=== PATIENT | female | born 1930 | race Caucasian/White ===

== ENCOUNTER 2017-06-15 09:47 | Emergency (ER) | payer OTHER ==
[2017-06-15] MEDS ORDERED: NA CHLORIDE 0.9% 1,000 ML ONE (12:09)
[2017-06-15 12:11] LABS: Urine Blood NEGATIVE (NEG); Urine Glucose NEGATIVE (NEG); Urine Protein NEGATIVE (NEG)
--- NOTE | 2017-06-15 12:16 | RAD REPORT ---
EXAM DESCRIPTION: RAD - Chest Single View - 06/15/2017 12:08 pm CLINICAL HISTORY: Hypertension COMPARISON: 03/04/2016 FINDINGS: Portable technique limits examination quality. The lungs are emphysematous but grossly clear. The heart is normal in size. No displaced fractures. IMPRESSION: Prominent emphysema.
[2017-06-15 12:25] LABS: Urine Bacteria <20 /HPF (<20); Urine Culture Reflex Order NOT NEEDED; Urine RBC <5 /HPF (NONE SEEN)
[2017-06-15 12:35] LABS: Absolute Lymphocytes (CBC) 0.8 K/uL (0.7-4.9); Absolute Monocytes 0.4 K/uL (0.1-1.3); Absolute Neutrophil 6.4 K/uL (1.8-8.0); Basophils % 0.8 % (0-1.3); Eosinophils % 1.7 % (0-4.4); Hematocrit 36.7 % (36.0-45.0); Lymphocytes % 10.1 % (15.3-44.8); MCH 29.7 pg (27.0-35.0); MCV 89.9 fL (80-100); MPV 8.3 fL (7.6-11.3); Monocytes % 5.5 % (3.3-12.3); RBC Red Blood Cell Count 4.08 M/uL (3.86-4.86)
[2017-06-15 12:37] LABS: Protime INR 0.97
[2017-06-15 12:40] LABS: Bicarbonate 38 mEq/L (21-31); Glucose Level 95 mg/dL (65-120); Sodium Level 132 mEq/L (135-145)
[2017-06-15 12:46] LABS: ALT/SGPT 23 IU/L (10-60); AST/SGOT 30 IU/L (10-42); Albumin 3.5 g/dL (3.2-5.5); Alkaline Phosphatase 72 IU/L (42-121); BUN Blood Urea Nitrogen 8 mg/dL (6-20); Bilirubin Direct 0.1 mg/dL (0-0.2); Bilirubin Total 0.4 mg/dL (0.3-1.2); Creatine Phosphokinase 64 IU/L (22-269); Magnesium 1.8 mg/dL (1.8-2.5); Protein, Total 7.6 g/dL (6.0-8.3)
[2017-06-15 12:48] LABS: CKMB Creatine Kinase MB 6.6 ng/ml (0.3-4.0)
[2017-06-15] MEDS ORDERED: LORAZEPAM 0.5 MG TABLET ONE (13:03)
[2017-06-15 13:18] LABS: Thyroid Stimulating Hormone 1.66 uIU/mL (0.34-5.60)
--- NOTE | 2017-06-15 14:21 | ER ---
Nurse's Notes [facility] Name: Tamiko Betts Age: 87 yrs Sex: Female : 1930 Arrival Date: 06/15/2017 Time: 09:50 Bed 19 Private MD: Crystal Love Diagnosis: Malaise and fatigue;Essential (primary) hypertension;Gastroesophageal bleeding Presentation: 06/15 10:00 Presenting complaint: Patient states: i have blurry vision this AM and headache, denies hj nausea and vomiting; reported blood in stool last night; and today BP was 197/89 this AM;. Transition of care: patient was not received from another setting of care. Onset of symptoms was June 15, 2017. Care prior to arrival: None. 10:00 Method Of Arrival: Ambulatory hj 10:00 Acuity: CARMINA 3 hj 11:00 Initial Sepsis Screen: Does the patient meet any 2 criteria? No. Patient's initial em sepsis screen is negative. Does the patient have a suspected source of infection? No. Patient's initial sepsis screen is negative. Triage Assessment: 10:04 General: Appears in no apparent distress. uncomfortable, Behavior is calm, cooperative, hj appropriate for age. Pain: Complains of pain in head Pain currently is 4 out of 10 on a pain scale. Historical: - Allergies: 10:03 No Known Allergies; hj - Home Meds: 10:03 amlodipine 5 mg tab 1 tab once daily [Active]; ibandronate 150 mg Oral tab 1 tab once hj moly [Active]; levothyroxine 50 mcg tab 1 tab once daily [Active]; metoprolol tartrate 50 mg oral tab 1 tab 2 times per day [Active]; mirtazapine 7.5 mg Oral tab nightly [Active]; pravastatin 20 mg Oral tab 1 tab once daily [Active]; Spiriva with HandiHaler 18 mcg inhalation CpDv 1 cap once daily [Active]; - PMHx: 10:03 COPD; High Cholesterol; Hypertension; hj - PSHx: 10:03 Hernia repair; hj - Immunization history:: Adult Immunizations up to date. - Social history:: Smoking status: Patient/guardian denies using tobacco. Screenin:41 Abuse screen: Denies threats or abuse. Nutritional screening: No deficits noted. em Tuberculosis screening: No symptoms or risk factors identified. Fall Risk None identified. Assessment: 11:00 General: Appears in no apparent distress. comfortable, malnourished, Behavior is calm, em cooperative, Denies fever. Pain: Denies pain. Neuro: Level of Consciousness is awake, alert, obeys commands, Oriented to person, place, time, situation, Parking Attendant are weak bilaterally Gait is unsteady, Speech is normal, Facial symmetry appears normal, Pupils are PERRLA, Intact. Cardiovascular: Denies chest pain, Heart tones S1 S2 present Capillary refill < 3 seconds Patient's skin is warm and dry. Respiratory: Airway is patent Respiratory effort is even, unlabored, Respiratory pattern is regular, symmetrical, Breath sounds are clear bilaterally. GI: Abdomen is flat. : Urine is clear. EENT: No signs and/or symptoms were reported regarding the EENT system. Derm: Skin is intact, Skin is pink, warm \T\ dry. Musculoskeletal: Range of motion: intact in all extremities. 11:25 Reassessment: Patient appears in no apparent distress at this time. I agree with the iw above assessment by Sid Gallagher LVN. 12:20 Reassessment: Patient appears in no apparent distress at this time. Patient and/or em family updated on plan of care and expected duration. Pain level reassessed. Patient is alert, oriented x 3, equal unlabored respirations, skin warm/dry/pink. 13:20 Reassessment: Patient appears in no apparent distress at this time. Patient and/or em family updated on plan of care and expected duration. Pain level reassessed. Patient is alert, oriented x 3, equal unlabored respirations, skin warm/dry/pink. 14:26 Reassessment: Patient appears in no apparent distress at this time. Patient and/or em family updated on plan of care and expected duration. Pain level reassessed. Patient is alert, oriented x 3, equal unlabored respirations, skin warm/dry/pink. Patient states feeling better. Patient states symptoms have improved. 15:18 Reassessment: Patient appears in no apparent distress at this time. Patient and/or em family updated on plan of care and expected duration. Pain level reassessed. Patient is alert, oriented x 3, equal unlabored respirations, skin warm/dry/pink. Patient states feeling better. Patient states symptoms have improved. Vital Signs: 10:05 BP 180 / 77; Pulse 61; Resp 20; Temp 98.1(TE); Pulse Ox 91% on 2 lpm NC; Weight 28.12 hj kg; Height 5 ft. 11 in. (180.34 cm); Pain 4/10; 12:46 BP 149 / 54; Pulse 59; Resp 19; Pulse Ox 98% on R/A; dh3 13:39 BP 163 / 51; Pulse 60; Resp 14; Pulse Ox 99% on 2 lpm NC; mh5 14:27 BP 153 / 67; Pulse 58; Resp 18; Pulse Ox 96% on 2 lpm NC; Pain 0/10; em 10:05 Body Mass Index 8.65 (28.12 kg, 180.34 cm) hj ED Course: 09:50 Patient arrived in ED. mr 09:50 Crystal Love MD is Private Physician. mr 10:02 Triage completed. hj 10:04 Arm band placed on left wrist. hj 10:38 EKG done, by medical technologist clinical. reviewed by Yadiel Figueroa MD. tc 10:44 Sid Gallagher LVN is Primary Nurse. em 10:51 Kesha Orozco FNP-C is PHCP. snw 10:51 Yadiel Figueroa MD is Attending Physician. snw 11:20 Urine collected: clean catch specimen, clear. em 11:41 Patient has correct armband on for positive identification. Placed in gown. Bed in low em position. Call light in reach. Side rails up X2. Adult w/ patient. 11:50 No provider procedures requiring assistance completed. Inserted saline lock: 20 gauge em in right antecubital area, using aseptic technique. Blood collected. 12:05 X-ray completed. Portable x-ray completed in exam room. Patient tolerated procedure sw well. 12:05 Initial lab(s) drawn, by me, sent to lab. First set of blood cultures drawn by me, em Second set of blood cultures drawn by me. 12:06 XRAY Chest (1 view) In Process Unspecified. EDMS 14:19 Crystal Love MD is Referral Physician. snw 14:19 Augusto Sow MD is Referral Physician. snw 14:39 EKG done, by medical technologist clinical. reviewed by Yadiel Figueroa MD Repeat EKG. at1 15:34 IV discontinued, intact, bleeding controlled, No redness/swelling at site. Pressure em dressing applied. Administered Medications: 12:14 Drug: NS 0.9% 1000 ml Route: IV; Rate: 75 ml/hr; Site: right antecubital; em 15:33 Follow up: IV Status: Order to discontinue infusion; IV Intake: 150ml em 13:09 Drug: Ativan 0.5 mg Route: PO; em 14:22 Follow up: Response: No adverse reaction em Intake: 15:33 IV: 150ml; Total: 150ml. em Outcome: 14:20 Discharge ordered by MD. urbina 15:33 Discharged to home ambulatory. em 15:33 Condition: good 15:33 Discharge instructions given to patient, family, Instructed on discharge instructions, follow up and referral plans. Demonstrated understanding of instructions, follow-up care. 15:51 Patient left the ED. em Signatures: Dispatcher [employer] EDMS Kesha Orozco, MANAGER CRISIS-C MANAGER CRISIS-Csnw Rose Olsen mr Elliott, Sid, PASTE MIXER LIQUID PASTE MIXER LIQUID em Shannan Dimas, RN Milagros Dawson, casing grader EKG Tat1 Jes Valdovinos, casing grader EKG Ttc Faith Leonard Henry, RN RN hj Martinez, Maria [facility] Didi Hale formerly [facility]
--- NOTE | 2017-06-15 14:21 | EDPHYS ---
Physician Documentation [facility] Name: Tamiko Betts Age: 87 yrs Sex: Female : 1930 Arrival Date: 06/15/2017 Time: 09:50 Bed 19 Private MD: Crystal Love ED Physician Yadiel Figueroa HPI: 06/15 11:49 This 87 yrs old Female presents to ER via Ambulatory with complaints of High snw Blood Pressure, Vision Problem. 11:49 Onset: The symptoms/episode began/occurred acutely, 1 week(s) ago, and became snw persistent. Associated signs and symptoms: Pertinent positives: dizziness, headache. Severity of symptoms: At its worst the blood pressure was moderate, this morning, 188 mm Hg. The patient has experienced similar episodes in the past, several times. The patient has been recently seen by a physician: the patient's primary care provider, Dr. Love 5 day(s) ago, with different complaint(s), and apparently was diagnosed with UTI, was given a prescription for antibiotics. Historical: - Allergies: 10:03 No Known Allergies; hj - Home Meds: 10:03 amlodipine 5 mg tab 1 tab once daily [Active]; ibandronate 150 mg Oral tab 1 tab once hj moly [Active]; levothyroxine 50 mcg tab 1 tab once daily [Active]; metoprolol tartrate 50 mg oral tab 1 tab 2 times per day [Active]; mirtazapine 7.5 mg Oral tab nightly [Active]; pravastatin 20 mg Oral tab 1 tab once daily [Active]; Spiriva with HandiHaler 18 mcg inhalation CpDv 1 cap once daily [Active]; - PMHx: 10:03 COPD; High Cholesterol; Hypertension; hj - PSHx: 10:03 Hernia repair; hj - Immunization history:: Adult Immunizations up to date. - Social history:: Smoking status: Patient/guardian denies using tobacco. ROS: 11:48 Eyes: Negative for injury, pain, redness, and discharge, ENT: Negative for injury, snw pain, and discharge, Neck: Negative for injury, pain, and swelling, Cardiovascular: Negative for chest pain, palpitations, and edema, Respiratory: Negative for shortness of breath, cough, wheezing, and pleuritic chest pain. 11:48 Back: Negative for injury and pain, : Negative for injury, bleeding, discharge, and swelling, MS/Extremity: Negative for injury and deformity, Skin: Negative for injury, rash, and discoloration. 11:48 Constitutional: Positive for body aches, chills, fatigue, malaise, poor PO intake. 11:48 Abdomen/GI: Positive for nausea, rectal bleeding. 11:48 Neuro: Positive for headache. Exam: 11:46 Head/Face: Normocephalic, atraumatic. Eyes: Pupils equal round and reactive to light, snw extra-ocular motions intact. Lids and lashes normal. Conjunctiva and sclera are non-icteric and not injected. Cornea within normal limits. Periorbital areas with no swelling, redness, or edema. ENT: Nares patent. No nasal discharge, no septal abnormalities noted. Tympanic membranes are normal and external auditory canals are clear. Oropharynx with no redness, swelling, or masses, exudates, or evidence of obstruction, uvula midline. Mucous membranes moist. Neck: Trachea midline, no thyromegaly or masses palpated, and no cervical lymphadenopathy. Supple, full range of motion without nuchal rigidity, or vertebral point tenderness. No Meningismus. Chest/axilla: Normal chest wall appearance and motion. Nontender with no deformity. No lesions are appreciated. Cardiovascular: Regular rate and rhythm with a normal S1 and S2. No gallops, murmurs, or rubs. Normal PMI, no JVD. No pulse deficits. 11:46 Back: No spinal tenderness. No costovertebral tenderness. Full range of motion. 11:46 Neuro: Awake and alert, GCS 15, oriented to person, place, time, and situation. Cranial nerves II-XII grossly intact. Motor strength 5/5 in all extremities. Sensory grossly intact. Cerebellar exam normal. Normal gait. Psych: Awake, alert, with orientation to person, place and time. Behavior, mood, and affect are within normal limits. 11:46 Constitutional: The patient appears frail, uncomfortable. 11:46 Respiratory: the patient does not display signs of respiratory distress, Respirations: pursed lip breathing, shallow respirations, Breath sounds: are clear throughout, home O2 at 2 L. 11:46 Abdomen/GI: Inspection: flat, Bowel sounds: hyperactive, in all quadrants, Palpation: abdomen is soft and non-tender, Rectal exam: rectal tone normal, Stool: guaiac positive. 11:46 Skin: Appearance: Color: normal in color, Temperature: cool, Moisture: dry, pressure sore stage 1 at thoracic spine, pressure sore stage 1 to sacral area. Vital Signs: 10:05 BP 180 / 77; Pulse 61; Resp 20; Temp 98.1(TE); Pulse Ox 91% on 2 lpm NC; Weight 28.12 hj kg; Height 5 ft. 11 in. (180.34 cm); Pain 4/10; 12:46 BP 149 / 54; Pulse 59; Resp 19; Pulse Ox 98% on R/A; dh3 13:39 BP 163 / 51; Pulse 60; Resp 14; Pulse Ox 99% on 2 lpm NC; mh5 14:27 BP 153 / 67; Pulse 58; Resp 18; Pulse Ox 96% on 2 lpm NC; Pain 0/10; em 10:05 Body Mass Index 8.65 (28.12 kg, 180.34 cm) hj MDM: 11:02 Patient medically screened. snw 15:23 Data reviewed: vital signs, nurses notes. Data interpreted: Pulse oximetry: on 2L(s) snw per nasal canula, is 96 %. Interpretation: acceptable. Counseling: I had a detailed discussion with the patient and/or guardian regarding: the historical points, exam findings, and any diagnostic results supporting the discharge/admit diagnosis, the presence of at least one elevated blood pressure reading (>120/80) during this emergency department visit, lab results, radiology results, the need for outpatient follow up, to return to the emergency department if symptoms worsen or persist or if there are any questions or concerns that arise at home. Special discussion: I have referred the patient to see his PCP for further evaluation of high blood pressure. Based on the history and exam findings, there is no indication for further emergent testing or inpatient evaluation. I discussed with the patient/guardian the need to see the treating inspector for further evaluation of the symptoms. I discussed with the patient/guardian the need to see the primary care provider for further evaluation of the symptoms. 06/15 11:24 Order name: Urine Microscopic Only; Complete Time: 12:27 em 06/15 11:35 Order name: Urine Dipstick--Ancillary (enter results); Complete Time: 12:14 mw2 06/15 11:45 Order name: Basic Metabolic Panel; Complete Time: 13:22 snw 06/15 11:45 Order name: BNP; Complete Time: 12:56 snw 06/15 11:45 Order name: CBC with Diff; Complete Time: 12:39 snw 06/15 11:45 Order name: Ckmb; Complete Time: 13:22 snw 06/15 11:45 Order name: CPK; Complete Time: 13:22 snw 06/15 11:45 Order name: LFT's; Complete Time: 13:22 snw 06/15 11:45 Order name: Magnesium; Complete Time: 13:22 snw 06/15 11:45 Order name: PT-INR; Complete Time: 13:09 snw 06/15 11:45 Order name: Ptt, Activated; Complete Time: 13:09 w 06/15 11:45 Order name: Troponin (emerg Dept Use Only); Complete Time: 12:56 snw 06/15 11:45 Order name: TS; Complete Time: 13:15 snw 06/15 11:45 Order name: TSH; Complete Time: 13:22 snw 06/15 10:12 Order name: EKG; Complete Time: 10:28 hj 06/15 11:45 Order name: XRAY Chest (1 view); Complete Time: 12:19 w 06/15 11:45 Order name: Cardiac monitoring; Complete Time: 12:w 06/15 11:45 Order name: EKG - Nurse/Tech; Complete Time: 12:06 w 06/15 11:45 Order name: IV Saline Lock; Complete Time: 12:06 snw 06/15 11:45 Order name: Labs collected and sent; Complete Time: 12:w 06/15 11:45 Order name: O2 Per Protocol; Complete Time: 12:06 snw 06/15 11:45 Order name: O2 Sat Monitoring; Complete Time: 12:06 snw 06/15 11:45 Order name: Blood Culture Adult (2) w 06/15 13:12 Order name: ABO/RH no charge; Complete Time: 13:15 EDMS 06/15 14:29 Order name: EKG; Complete Time: 14:30 snw 06/15 14:29 Order name: EKG - Nurse/Tech; Complete Time: 15:16 snw Administered Medications: 12:14 Drug: NS 0.9% 1000 ml Route: IV; Rate: 75 ml/hr; Site: right antecubital; em 15:33 Follow up: IV Status: Order to discontinue infusion; IV Intake: 150ml em 13:09 Drug: Ativan 0.5 mg Route: PO; em 14:22 Follow up: Response: No adverse reaction em Disposition: 06/15/17 14:20 Discharged to Home. Impression: Malaise and fatigue, Essential (primary) hypertension, Gastroesophageal bleeding. - Condition is Stable. - Discharge Instructions: Hypertension, Fatigue. - Medication Reconciliation Form, Thank You Letter, Antibiotic Education, Prescription Opioid Use form. - Follow up: Crystal Love MD; When: Tomorrow; Reason: Recheck today's complaints, Continuance of care, Re-evaluation by your physician. Follow up: Augusto Sow MD; When: 2 - 3 days; Reason: Recheck today's complaints, Continuance of care, Re-evaluation by your physician. Addendum: 06/18/2017 06:14 Co-signature as Attending Physician, Yadiel Figueroa MD Available for consultation at p s1 all times. . Signatures: Dispatcher [employer] EDMS Kesha Orozco, CHRISTEN-C HVAC INSTALLATION TECHNICIAN-Csnw Sid Gallagher, ADRIANNA MAINTENANCE FOREMAN em Gianluca Orellana, RN RN Yadiel Barber MD MD ps1 Corrections: (The following items were deleted from the chart) 06/15 11:49 11:46 Skin: Appearance: Color: normal in color, Temperature: cool, Moisture: dry, snw snw
--- NOTE | 2017-06-15 14:52 | EKG ---
Test Date: 2017-06-15 Test Time: 14:31:43 Dwarf Tree Grower: LONNIE MEASUREMENT RESULTS: Intervals: Rate: 62 DE: 132 QRSD: 68 QT: 408 QTc: 414 [place]: P: 84 DE: 132 QRS: 91 T: 81 INTERPRETIVE STATEMENTS: Normal sinus rhythm Right atrial enlargement Rightward axis Septal infarct, age undetermined Abnormal ECG Compared to ECG 06/15/2017 10:20:03 no significant change from previous ECG Electronically Signed On 06-15-17 14:51:39 CDT by Jelani Chand
--- NOTE | 2017-06-15 14:54 | EKG ---
Test Date: 2017-06-15 Test Time: 10:20:03 Billiard Table Mechanic: FAISAL MEASUREMENT RESULTS: Intervals: Rate: 66 DC: 128 QRSD: 70 QT: 610 QTc: 639 [place]: P: 84 DC: 128 QRS: 92 T: -83 INTERPRETIVE STATEMENTS: Sinus rhythm Rightward axis Excessive artifact Septal infarct Abnormal ECG Compared to ECG 02/25/2017 10:00:13 no significant change from previous ECG Electronically Signed On 06-15-17 14:53:52 CDT by Jelani Chand
[2017-06-15 15:56] VITALS: TEMP 98.1
[2017-06-15 16:00] VITALS: BP 153/67; O2SAT 96
== END 2017-06-15 15:51 | disposition home or self-care (01) ==
LOC: ER 09:47
DX: R53.83 Other fatigue (principal); I10 Essential (primary) hypertension; I85.01 Esophageal varices with bleeding; E78.00 Pure hypercholesterolemia, unspecified; J44.9 Chronic obstructive pulmonary disease, unspecified
CPT/HCPCS: 36415; 71045; 80048; 80076; 82550; 82553; 83735; 83880; 84443; 84484; 85025; 85610; 85730; 86850; 86900; 86901; 87040 ×2; 93005 ×2; 96360; 96361; 99284; J7030; 81003; 81015

== ENCOUNTER 2017-06-24 11:29 | Observation (INO) | payer OTHER ==
--- NOTE | 2017-06-24 12:48 | RAD REPORT ---
[facility] CLINICAL HISTORY: Chest pain COMPARISON: June 15, 2017 FINDINGS: The lungs are hyperaerated. Calcified mediastinal lymph nodes are present. The lungs appear clear of acute infiltrate. The heart is normal size IMPRESSION: COPD without visualization acute abnormality
--- NOTE | 2017-06-24 12:50 | RAD REPORT ---
EXAM DESCRIPTION: CT - Head Brain Wo Cont - 06/24/2017 12:33 pm CLINICAL HISTORY: Headache COMPARISON: October 2009 TECHNIQUE: Axial 5 mm thick images of the head were obtained without IV contrast. All CT scans are performed using dose optimization technique as appropriate and may include automated exposure control or mA/KV adjustment according to patient size. FINDINGS: No intracranial hemorrhage, mass, edema or shift of mid-line structures. No acute cortical based infarction. No cortical edema or sulcal effacement. Atrophy changes are relatively mild. Chron ic ischemic changes are advanced in only minimally progressive from 2009. No abnormal extra-axial flu id collections. Ventricular size is in proportion to volume loss. Mastoid air cells and visualized portions of the paranasal sinuses are clear. No acute bony findings. IMPRESSION: No hemorrhage or acute intracranial finding seen. Advanced chronic ischemic change and mild to moderate atrophy mildly progressive from the 2009 study.
[2017-06-24 13:11] LABS: Absolute Lymphocytes (CBC) 0.6 K/uL (0.7-4.9); Absolute Monocytes 0.4 K/uL (0.1-1.3); Absolute Neutrophil 6.3 K/uL (1.8-8.0); Basophils % 0.9 % (0-1.3); Eosinophils % 1.3 % (0-4.4); Lymphocytes % 8.6 % (15.3-44.8); MCH 29.5 pg (27.0-35.0); MCV 88.5 fL (80-100); MPV 8.1 fL (7.6-11.3); Monocytes % 5.5 % (3.3-12.3); Protime INR 1.01
[2017-06-24 13:16] LABS: Bicarbonate 37 mEq/L (21-31); Glucose Level 87 mg/dL (65-120); Potassium 3.9 mEq/L (3.6-5.0); Sodium Level 139 mEq/L (135-145)
[2017-06-24 13:23] LABS: ALT/SGPT 21 IU/L (10-60); AST/SGOT 29 IU/L (10-42); Albumin 3.8 g/dL (3.2-5.5); Alkaline Phosphatase 67 IU/L (42-121); BUN Blood Urea Nitrogen 12 mg/dL (6-20); Bilirubin Direct 0.1 mg/dL (0-0.2); Bilirubin Total 0.4 mg/dL (0.3-1.2); Creatine Phosphokinase 88 IU/L (22-269); Magnesium 1.7 mg/dL (1.8-2.5); Protein, Total 7.6 g/dL (6.0-8.3)
[2017-06-24 13:25] LABS: CKMB Creatine Kinase MB 7.3 ng/ml (0.3-4.0)
[2017-06-24 13:48] LABS: Urine Blood TRACE (NEG); Urine Glucose NEGATIVE (NEG); Urine Protein NEGATIVE (NEG)
[2017-06-24] MEDS ORDERED: NA CHLORIDE 0.9% 250 ML ONE (14:07)
[2017-06-24] MEDS ORDERED: MAGNESIUM SULFATE 1 gm IVPB 1 GM/100 ML BAG IV ONE (14:08)
[2017-06-24] MEDS ORDERED: cloNIDine HCl 0.1 MG TAB ONE (14:41)
[2017-06-24] MEDS ORDERED: ACETAMINOPHEN 500 MG TAB PO PRN (15:45)
[2017-06-24] MEDS ORDERED: ONDANSETRON 4 MG/2 ML VIAL IV PRN (15:45)
[2017-06-24] MEDS ORDERED: ACETAMINOPHEN 650MG/RECT SUPP PR PRN (15:45)
--- NOTE | 2017-06-24 16:00 | P.HP ---
Certification for Inpatient Patient admitted to: Observation With expected LOS: <2 Midnights Patient will require the following post-hospital care: None Practitioner: I am a practitioner with admitting privileges, knowledge of patient current condition, hospital course, and medical plan of care. Services: Services provided to patient in accordance with Admission requirements found in Title 42 Section 412.3 of the Code of Federal Regulations Patient History Date of Service: 06/24/17 Primary Care Provider: Dr. Love; Cardiology-Dr. Chand; GI-Dr. Mercer Reason for admission: Dysphagia, epigastric pain, chest pain History of Present Illness: 87-year-old female presented emergency room with multiple complaints including dysphagia, epigastric pain and chest pain. The patient also reported feeling not well this morning. She reports that she has been having some weight loss over the past year. She recently saw GI last week for this issue. She was to have a swallow study and further evaluation done. She was not able to tolerate food or pills this morning. Her blood pressures were elevated. Patient with history of hypertension and advanced COPD on oxygen. She also felt some chest pain along with epigastric pain this morning. She denied any significant diarrhea or constipation. Some nausea was noted. She did not vomit. The patient came to the ER for further evaluation. In the ER the patient was evaluated. She did have some difficulty swallowing. Hemoglobin stable at 12.7. White count 7.5. Sodium 129. GFR within normal range. Magnesium 1.7. Troponin less than 0.03. BNP 265. Urinalysis unremarkable. CT of the head negative for acute stroke. Chest x-ray showed COPD changes. Due to nature of her findings and history the patient was admitted for further evaluation. The patient did have elevated blood pressure. She was treated in the ER for this. Blood pressure improved. When I saw the patient the ER, she appeared stable. I was able to get in contact with GI who will see the patient. GI requested CT of the chest and abdomen along with speech evaluation. This will be done. Allergies No Known Allergies Allergy (Verified 02/29/16 15:43) Home medications list reviewed: Yes Home Medications: Lisinopril [Prinivil*] 10 mg PO DAILY AFTER SUPPER 07/31/15 Loratadine [Claritin*] 10 mg PO DAILYPRN PRN 07/31/15 Pravastatin [Pravachol*] 20 mg PO DAILY AFTER SUPPER 07/31/15 Amlodipine [Norvasc*] 5 mg PO DAILY AFTER SUPPER 09/25/15 Tiotropium [Spiriva Handihaler*] 18 mcg IH DAILY 09/25/15 Ibandronate Sodium 150 mg PO SEECOM 02/29/16 Fluticasone/Salmeterol [Advair 250/50 Diskus] 1 puff IH BID #1 disk 03/04/16 Levofloxacin [Levaquin] 500 mg PO DAILY #10 tab 03/04/16 Levothyroxine [Synthroid*] 0.05 mg PO [id number] tablet 03/04/16 Metoprolol Tartrate 12.5 mg PO BID #30 tablet 03/04/16 Mirtazapine 7.5 mg PO BEDTIME #30 tablet 03/04/16 - Past Medical/Surgical History Diabetic: No -: Advanced COPD, oxygen dependent -: HTN -: Hyperlipidemia -: Former tobacco use -: Hernia repair Psychosocial/ Personal History: The patient lives at home. - Family History Father -: Lung disease Mother -: GI disease Notes: Gall bladder issues and after surgery - Social History Smoking Status: Former smoker Alcohol use: No CD- Drugs: No Caffeine use: Yes Place of Residence: Home Review of Systems General: Weakness, Malaise, As per HPI Eyes: Unremarkable ENT: Unremarkable Respiratory: Shortness of Breath, SOB with Excertion, As per HPI Cardiovascular: Chest Pain, As per HPI Gastrointestinal: Nausea, Abdominal Pain, As per HPI Genitourinary: Unremarkable Musculoskeletal: Unremarkable Integumentary: Unremarkable Neurological: Weakness, As per HPI Lymphatics: Unremarkable Physical Examination - Physical Exam General: Alert, In no apparent distress, Oriented x3, Cooperative HEENT: Atraumatic, Normocephalic, PERRLA, Other (Dry mucous membranes) Neck: Supple, No Thyromegaly Respiratory: Expiratory wheezes (Bilateral.), Other (Patient with advanced COPD. ) Cardiovascular: Normal pulses, Regular rate/rhythm Gastrointestinal: Normal bowel sounds, Soft and benign, Non-distended, No masses , No rebound, No guarding, Other (Patient is very thin.) Musculoskeletal: No erythema, No tenderness, No warmth Integumentary: No tenderness/swelling, No erythema, No warmth, No cyanosis Neurological: Normal speech, Normal strength at 5/5 x4 extr, Normal tone, Normal affect Lymphatics: No axilla or inguinal lymphadenopathy - Studies Laboratory Data (last 24 hrs) 06/24/17 12:52: PT 11.9, INR 1.01, APTT 31.1 06/24/17 12:52: WBC 7.5, Hgb 12.7, Hct 38.0, Plt Count 303 06/24/17 12:52: B-Natriuretic Peptide 265 H 06/24/17 12:52: Sodium 139, Potassium 3.9, BUN 12, Creatinine 0.54, Glucose 87, Magnesium 1.7 L, Total Bilirubin 0.4, AST 29, ALT 21, Alkaline Phosphatase 67 Assessment and Plan - Problems (Diagnosis) (1) Dysphagia Current Visit: Yes Status: Acute Plan: Will have speech therapy evaluate swallowing. Will also order CT chest and abdomen to further address. Case discussed with GI. Patient may require EGD for further evaluation. Patient will be NPO. Will start IV Protonix. Advanced directives address in detail with the family. Patient is DNR. Risks and benefits were addressed. The patient understand this in detail. This was confirmed with family who was present. Qualifiers: Dysphagia type: unspecified Qualified Code(s): R13.10 - Dysphagia, unspecified (2) Epigastric pain Current Visit: Yes Status: Acute Plan: Continue with above plan of care. Will check echocardiogram and monitor cardiac enzymes. Blood pressure better controlled. Will start IV Protonix as I suspect GERD or esophageal stenosis. (3) Chest pain Current Visit: Yes Status: Acute Plan: Will monitor cardiac enzymes. This may be related to her GI problem. Will check echocardiogram. Qualifiers: Chest pain type: unspecified Qualified Code(s): R07.9 - Chest pain, unspecified (4) COPD (chronic obstructive pulmonary disease) Current Visit: Yes Status: Chronic Plan: Patient with advanced COPD on home oxygen. Overall stable. Will continue with COPD treatment. Qualifiers: COPD type: chronic bronchitis (5) GERD (gastroesophageal reflux disease) Current Visit: Yes Status: Suspected Plan: Will start IV Protonix. Will continue with above plan of care. (6) Hyperlipidemia Onset Date: 03/02/16 Current Visit: No Status: Chronic Plan: Will continue with her medication. (7) Hypertension Onset Date: 03/02/16 Current Visit: No Status: Chronic Plan: Will continue with blood pressure medication. Qualifiers: Hypertension type: essential hypertension Qualified Code(s): I10 - Essential (primary) hypertension Discharge Plan: Home Plan to discharge in: Greater than 2 days - Advance Directives Does patient have a Living Will: Yes Does patient have a Durable POA for Healthcare: Yes - Code Status/Comfort Care Code Status Assessed: Yes (Patient DNR. Case discussed in detail with family present) Time Spent Managing Pts Care (In Minutes): 55
--- NOTE | 2017-06-24 16:05 | EDPHYS ---
Physician Documentation [facility] Name: Tamiko Betts Age: 87 yrs Sex: Female : 1930 Arrival Date: 06/24/2017 Time: 11:32 Bed 7 Private MD: ED Physician Trerell Carlos HPI: 06/24 12:20 This 87 yrs old Female presents to ER via EMS with complaints of General cp Weakness. 12:20 The patient's problem is reported as weakness, that is generalized. Onset: The cp symptoms/episode began/occurred this morning. 12:20 Duration: The episode is continuous. Patient's baseline: Neuro: alert and fully cp oriented, Motor: no deficits, Ambulation: walks without assistance, Speech: normal. 12:20 Patient reports difficulty swallowing and sensation of food and medications getting cp stuck. Patient has not eaten or taken prescribed meds this morning. Home health wanted patient to be evaluated for elevated blood pressure today. Historical: - Allergies: 16:15 No Known Allergies; ae1 - Home Meds: 15:53 amlodipine 5 mg tab 1 tab once daily [Active]; ibandronate 150 mg Oral tab 1 tab once ae1 moly [Active]; levothyroxine 50 mcg tab 1 tab once daily [Active]; metoprolol tartrate 50 mg Oral tab 1 tab 2 times per day [Active]; mirtazapine 7.5 mg Oral tab nightly [Active]; pravastatin 20 mg Oral tab 1 tab once daily [Active]; Spiriva with HandiHaler 18 mcg inhalation CpDv 1 cap once daily [Active]; - PMHx: 15:53 COPD; High Cholesterol; Hypertension; ae1 - Immunization history:: Adult Immunizations up to date. - Social history:: Smoking status: Patient/guardian denies using tobacco. ROS: 12:25 Constitutional: Negative for body aches, chills, fever, poor PO intake. cp 12:25 Eyes: Negative for injury, pain, redness, and discharge. cp 12:25 ENT: Positive for difficulty swallowing, Negative for drainage from ear(s), ear pain, sore throat, difficulty handling secretions, hoarseness. 12:25 Neck: Negative for pain with movement, pain at rest, stiffness, tenderness, bony tenderness. 12:25 Cardiovascular: Negative for chest pain, edema, palpitations. 12:25 Respiratory: Negative for cough, shortness of breath, wheezing. 12:25 Abdomen/GI: Negative for abdominal pain, nausea, vomiting, and diarrhea, black/tarry stool, rectal bleeding. 12:25 Back: Negative for pain at rest, pain with movement, radiated pain. 12:25 : Negative for urinary symptoms. 12:25 Skin: Negative for cellulitis, rash. 12:25 Neuro: Negative for altered mental status, dizziness, headache, weakness. 12:25 All other systems are negative. Exam: 12:29 ECG was reviewed by the Attending Physician. cp 12:33 Constitutional: The patient appears in no acute distress, alert, awake, cp non-diaphoretic, non-toxic, well developed, frail. 12:33 Head/Face: Normocephalic, atraumatic. Eyes: Pupils equal round and reactive to light, cp extra-ocular motions intact. Lids and lashes normal. Conjunctiva and sclera are non-icteric and not injected. Cornea within normal limits. Periorbital areas with no swelling, redness, or edema. ENT: Nares patent. No nasal discharge, no septal abnormalities noted. Tympanic membranes are normal and external auditory canals are clear. Oropharynx with no redness, swelling, or masses, exudates, or evidence of obstruction, uvula midline. Mucous membranes moist. Neck: Trachea midline, no thyromegaly or masses palpated, and no cervical lymphadenopathy. Supple, full range of motion without nuchal rigidity, or vertebral point tenderness. No Meningismus. Chest/axilla: Normal chest wall appearance and motion. Nontender with no deformity. No lesions are appreciated. 12:33 Cardiovascular: Rate: normal, Rhythm: regular, Pulses: Pulses are 2+ in right radial artery and left radial artery. Edema: is not appreciated, JVD: is not appreciated. 12:33 Respiratory: the patient does not display signs of respiratory distress, Respirations: normal, no use of accessory muscles, no retractions, no splinting, no tachypnea, labored breathing, is not present, Breath sounds: are clear throughout, no decreased breath sounds, no stridor, no wheezing. 12:33 Abdomen/GI: Inspection: abdomen appears normal, Bowel sounds: active, all quadrants, Palpation: abdomen is soft and non-tender, in all quadrants, rebound tenderness, is not appreciated, voluntary guarding, is not appreciated, involuntary guarding, is not appreciated. 12:33 Back: pain, is absent, ROM is normal. 12:33 Skin: cellulitis, is not appreciated, no rash present. 12:33 Neuro: Orientation: to person, place \T\ time. Mentation: lucid, able to follow commands, Cerebellar function: Romberg testing is negative, normal finger to nose testing, Motor: moves all fours, strength is normal, Sensation: no obvious gross deficits. 13:05 Radiologist reports: no acute findings Vital Signs: 11:40 BP 175 / 76; Pulse 92; Resp 21 S; Temp 97.7(O); Pulse Ox 97% on 2 lpm NC; Weight 29.48 ae1 kg (R); 12:45 BP 176 / 85; Pulse 94; Resp 20; Pulse Ox 99% on 2 lpm NC; ae1 13:45 BP 160 / 69; Pulse 87; Resp 28; Pulse Ox 100% on 2 lpm NC; ae1 14:42 BP 179 / 82; Pulse 102; Resp 20; Pulse Ox 99% on 2 lpm NC; ae1 15:29 BP 182 / 81; Pulse 95; Resp 25; Pulse Ox 99% on 2 lpm NC; ae1 16:02 BP 117 / 72; Pulse 93; Resp 24; Pulse Ox 98% on 2 lpm NC; jb1 16:13 BP 158 / 76; Pulse 91; Resp 19; Pulse Ox 100% on 2 lpm NC; ae1 MDM: 12:00 Patient medically screened. 15:00 Data reviewed: vital signs, nurses notes, lab test result(s), EKG, radiologic studies, cp CT scan, plain films. 15:00 Test interpretation: by ED physician or midlevel provider: ECG, plain radiologic cp studies. Response to treatment: There is no appreciated change of the patient's symptoms at this time. 15:02 Physician consultation: Rehan Raymond DO was called at 15:00, was contacted at 15:00, regarding admission, to the medical/surgical unit. patient's condition, and will see patient in ED, shortly. 06/24 12:13 Order name: Basic Metabolic Panel; Complete Time: 13:49 06/24 13:49 Interpretation: Normal except: CL 95; CO2 37. cp 06/24 12:13 Order name: BNP; Complete Time: 13:49 cp 06/24 12:13 Order name: CBC with Diff; Complete Time: 13:49 cp 06/24 12:13 Order name: Ckmb; Complete Time: 13:49 cp 06/24 12:13 Order name: CPK; Complete Time: 13:49 cp 06/24 12:13 Order name: LFT's; Complete Time: 13:49 cp 06/24 12:13 Order name: Magnesium; Complete Time: 13:49 cp 06/24 12:13 Order name: PT-INR; Complete Time: 13:49 cp 06/24 12:13 Order name: Ptt, Activated; Complete Time: 13:49 cp 06/24 12:13 Order name: Troponin (emerg Dept Use Only); Complete Time: 13:49 cp 06/24 13:21 Order name: Urine Dipstick--Ancillary (enter results); Complete Time: 13:50 eb 06/24 13:50 Interpretation: Normal except: UKET 1+; UBLD TRACE; UPH 8.0. cp 06/24 15:52 Order name: T4 Free EDMS 06/24 15:52 Order name: Thyroid Stimulating Hormone EDMS 06/24 15:52 Order name: Basic Metabolic Panel EDMS 06/24 12:13 Order name: CT Head Brain wo Cont; Complete Time: 13:01 cp 06/24 12:13 Order name: XRAY Chest (1 view); Complete Time: 13:01 cp 06/24 15:21 Order name: CT Chest, Abdomen, Pelvis - W/Contrast: give oral contrast cp 06/24 15:52 Order name: Echo with Doppler EDMS 06/24 15:52 Order name: Basic Metabolic Panel EDMS 06/24 15:52 Order name: Basic Metabolic Panel EDMS 06/24 15:52 Order name: Basic Metabolic Panel EDMS 06/24 15:52 Order name: CBC with Automated Diff EDMS 06/24 15:52 Order name: CBC with Automated Diff EDMS 06/24 15:52 Order name: CBC with Automated Diff EDMS 06/24 15:52 Order name: CBC with Automated Diff EDMS 06/24 15:52 Order name: Magnesium EDMS 06/24 15:52 Order name: Magnesium EDMS 06/24 15:52 Order name: Magnesium EDMS 06/24 15:52 Order name: Magnesium EDMS 06/24 15:53 Order name: Urinalysis [facility] 06/24 12:13 Order name: EKG; Complete Time: 12:13 06/24 12:13 Order name: Cardiac monitoring; Complete Time: 12:14 06/24 12:13 Order name: EKG - Nurse/Tech; Complete Time: 12:58 06/24 12:13 Order name: IV Saline Lock; Complete Time: 12:58 06/24 12:13 Order name: Labs collected and sent; Complete Time: 12:58 06/24 12:13 Order name: O2 Per Protocol; Complete Time: 12:14 06/24 12:13 Order name: O2 Sat Monitoring; Complete Time: 12:14 06/24 12:13 Order name: Urine Dipstick-Ancillary (obtain specimen); Complete Time: 13:06 06/24 12:13 Order name: Swallow Screen; Complete Time: 13:06 06/24 15:52 Order name: CONS Physician Consult [facility] 06/24 15:52 Order name: NPO [facility] 06/24 15:53 Order name: Speech Therapy Consult [facility] 06/24 15:55 Order name: Respiratory Therapy Consult [facility] EC:29 Rate is 90 beats/min. Rhythm is regular. VT interval is normal. QRS interval is normal. cp QT interval is normal. No ST changes noted. Interpreted by me. Reviewed by me. Administered Medications: 14:50 Drug: Magnesium Sulfate 1 grams Route: IVPB; Infused Over: 1 hrs; Site: right ae1 antecubital; 17:19 Follow up: IV Status: Completed infusion ae1 14:50 Drug: NS 0.9% 250 ml Route: IV; Rate: bolus; Site: right antecubital; ae1 14:53 Drug: cloNIDine 0.1 mg Route: PO; ae1 17:18 Follow up: Response: Blood pressure is lowered ae1 Disposition: 18:55 Co-signature as Attending Physician, Terrell Carlos MD I agree with the assessment and kdr plan of care. Disposition: 06/24/17 16:04 Hospitalization ordered by Rehan Raymond for Observation. Preliminary diagnosis are Dysphagia, unspecified, Weakness - General. - Bed requested for Telemetry/MedSurg (observation). - Status is Observation. ae1 - Condition is Stable. - Problem is new. - Symptoms are unchanged. UTI on Admission? No Signatures: Dispatcher [employer] Mirlande Alex, RN RN dw Terrell Carlos MD MD kdr Rick Chatman PA PA cp Elliott, Andrea, RN RN ae1
--- NOTE | 2017-06-24 16:05 | ER ---
Nurse's Notes [facility] Name: Tamiko Betts Age: 87 yrs Sex: Female : 1930 Arrival Date: 06/24/2017 Time: 11:32 Bed 7 Private MD: Diagnosis: Dysphagia, unspecified;Weakness-General Presentation: 06/24 11:41 Presenting complaint: EMS states: EMS states patient is experiencing generalized ae1 weakness that started this morning. FSBS 108. Transition of care: patient was not received from another setting of care. Onset of symptoms was June 24, 2017. Care prior to arrival: PAtient is on 2 liter oxygen via nasal cannula 20/09. 11:41 Method Of Arrival: EMS: [facility] ae1 11:41 Acuity: CARMINA 3 ae1 17:25 Initial Sepsis Screen: Does the patient meet any 2 criteria? No. Patient's initial ae1 sepsis screen is negative. Does the patient have a suspected source of infection? No. Patient's initial sepsis screen is negative. Triage Assessment: 11:43 General: Appears in no apparent distress. comfortable, slender, well groomed, Behavior ae1 is cooperative, anxious. Pain: Complains of pain in base of the skull. Respiratory: Airway is patent Respiratory effort is even, unlabored, Respiratory pattern is regular, symmetrical. Historical: - Allergies: 16:15 No Known Allergies; ae1 - Home Meds: 15:53 amlodipine 5 mg tab 1 tab once daily [Active]; ibandronate 150 mg Oral tab 1 tab once ae1 moly [Active]; levothyroxine 50 mcg tab 1 tab once daily [Active]; metoprolol tartrate 50 mg Oral tab 1 tab 2 times per day [Active]; mirtazapine 7.5 mg Oral tab nightly [Active]; pravastatin 20 mg Oral tab 1 tab once daily [Active]; Spiriva with HandiHaler 18 mcg inhalation CpDv 1 cap once daily [Active]; - PMHx: 15:53 COPD; High Cholesterol; Hypertension; ae1 - Immunization history:: Adult Immunizations up to date. - Social history:: Smoking status: Patient/guardian denies using tobacco. Screenin:57 Abuse screen: Denies threats or abuse. Nutritional screening: No deficits noted. ae1 Tuberculosis screening: No symptoms or risk factors identified. Fall Risk No fall in past 12 months (0 pts). No secondary diagnosis (0 pts). IV access (20 points). Ambulatory Aid- Crutches/Cane/Walker (15 pts). Gait- Weak (10 pts.). Mental Status- Oriented to own ability (0 pts). Assessment: 12:21 Reassessment: Radiology at bedside obtaining chest x-ray. ae1 13:05 Reassessment: Patient assisted onto bedpan, obtained urine sample at this time. ae1 16:11 Reassessment: notified CT via telephone that patient completed 75% PO contrast, and ae1 that per Prachi Chatman, ok to CT. 16:58 Reassessment: Patient assisted onto bedpan, patient had a water BM. Area cleansed and ae1 pull up brief applied. 17:24 Reassessment: Report called to Jenise receiving nurse on 4th floor. ae1 17:25 Reassessment: Assisted patient onto bedpan, patient passed watery tool BM. ae1 Vital Signs: 11:40 BP 175 / 76; Pulse 92; Resp 21 S; Temp 97.7(O); Pulse Ox 97% on 2 lpm NC; Weight 29.48 ae1 kg (R); 12:45 BP 176 / 85; Pulse 94; Resp 20; Pulse Ox 99% on 2 lpm NC; ae1 13:45 BP 160 / 69; Pulse 87; Resp 28; Pulse Ox 100% on 2 lpm NC; ae1 14:42 BP 179 / 82; Pulse 102; Resp 20; Pulse Ox 99% on 2 lpm NC; ae1 15:29 BP 182 / 81; Pulse 95; Resp 25; Pulse Ox 99% on 2 lpm NC; ae1 16:02 BP 117 / 72; Pulse 93; Resp 24; Pulse Ox 98% on 2 lpm NC; jb1 16:13 BP 158 / 76; Pulse 91; Resp 19; Pulse Ox 100% on 2 lpm NC; ae1 ED Course: 11:32 Patient arrived in ED. ae1 11:43 Triage completed. ae1 12:00 Rick Chatman PA is PHCP. cp 12:00 Terrell Carlos MD is Attending Physician. cp 12:14 Chaim Carlisle RN is Primary Nurse. ae1 12:[address] vm2 12:33 CT completed. Patient tolerated procedure well. Patient moved back from CT. vm2 12:33 CT Head Brain wo Cont In Process Unspecified. EDMS 12:33 EKG done, by donor center technician. reviewed by Rick OSWALD. 12:35 X-ray completed. Portable x-ray completed in exam room. Patient tolerated procedure ml well. 12:37 XRAY Chest (1 view) In Process Unspecified. EDMS 14:57 Arm band placed on right wrist. EKG completed in triage. Results shown to MD. ae1 14:59 Placed in gown. Bed in low position. Side rails up X2. Adult w/ patient. Cardiac ae1 monitor on. Pulse ox on. NIBP on. 16:04 Rehan Raymond DO is Hospitalizing Provider. cp 17:42 No provider procedures requiring assistance completed. Patient admitted, IV remains in ae1 place. Administered Medications: 14:50 Drug: Magnesium Sulfate 1 grams Route: IVPB; Infused Over: 1 hrs; Site: right ae1 antecubital; 17:19 Follow up: IV Status: Completed infusion ae1 14:50 Drug: NS 0.9% 250 ml Route: IV; Rate: bolus; Site: right antecubital; ae1 14:53 Drug: cloNIDine 0.1 mg Route: PO; ae1 17:18 Follow up: Response: Blood pressure is lowered ae1 Outcome: 16:04 Decision to Hospitalize by Provider. cp 17:42 Admitted to Tele accompanied by tech, family with patient, via stretcher, room 427, ae1 with oxygen, with chart, Report called to Jenise receiving nurse. 17:42 Condition: stable 17:42 Instructed on the need for admit, Demonstrated understanding of instructions. 17:43 Patient left the ED. ae1 Signatures: Dispatcher [employer] EDMS Farooq Warren Melissa ml Harrell, Venessa Rick Chatman PA PA cp Chaim Carlisle RN RN ae1 [place] 2 Corrections: (The following items were deleted from the chart) 11:44 11:40 BP 137 / 121; Pulse 92bpm; Resp 21bpm; Spontaneous; Pulse Ox 97% 2 lpm Nasal ae1 Cannula; Temp 97.7F Oral; 29.48 kg Reported; ae1 14:54 14:42 BP 2 / 82; Pulse 102bpm; Resp 20bpm; Pulse Ox 99% 2 lpm Nasal Cannula; ae1 ae1
--- NOTE | 2017-06-24 16:24 | EKG ---
Test Date: 2017-06-24 Test Time: 12:22:25 [employer] Operator: RIO MEASUREMENT RESULTS: Intervals: Rate: 90 SC: 112 QRSD: 64 QT: 350 QTc: 428 [place]: P: 76 SC: 112 QRS: 94 T: 92 INTERPRETIVE STATEMENTS: Sinus rhythm with premature atrial complexes Rightward axis Borderline ECG Compared to ECG 06/15/2017 14:31:43 Atrial premature complex(es) now present Atrial abnormality no longer present Myocardial infarct finding no longer present Electronically Signed On 06-24-17 16:23:29 CDT by Jono Hand
[2017-06-24 17:47] VITALS: BMI 12.5
[2017-06-24] MEDS ORDERED: SODIUM CHLORIDE 0.9% 10ML INJ IV PRN (17:47)
[2017-06-24] MEDS: NA CHLORIDE 0.9% 1,000 ML IV SCH (18:26)
[2017-06-24] MEDS: ENOXAPARIN 40 MG/0.4 ML SQ SCH (18:27)
--- NOTE | 2017-06-24 18:57 | RAD REPORT ---
EXAM DESCRIPTION: CT - Chest Abdomen Pelvis W Cont - 06/24/2017 6:14 pm CLINICAL HISTORY: Chest pain, abdominal pain, difficulty swallowing COMPARISON: CT imaging August 2014 TECHNIQUE: Following dynamic enhancement using 100 milliliters nonionic IV contrast, axial imaging o f the chest, abdomen and pelvis was performed. Biphasic technique was utilized through the abdomen. Oral contrast was administered. All CT scans are performed using dose optimization technique as appropriate and may include automated exposure control or mA/KV adjustment according to patient size. FINDINGS: Very advanced COPD changes are present. The fibrotic and hyperexpanded lung alicea show no superimposed mass or infiltrate. No pleural effusion, pleural thickening or pneumothorax. No signifi cant aortic or pulmonary arterial tree finding. Mediastinal and hilar regions show no mass or abnorma l lymphadenopathy. No chest wall mass or axillary lymphadenopathy. Dense aortic calcifications are pr esent. Heart size is mildly prominent primarily biatrial enlargement. No pericardial effusion. Liver size is normal with no focal liver lesion. Patient has a Reidel lobe configuration. Numerous s plenic granulomatous calcifications are present. No primary pancreatic process identifiable. Gallblad les and biliary tree are unremarkable. Gallstones can be occult on CT imaging. Renal function is sym metric and does not appear to be delayed. Large cyst is present in the lateral left kidney approximat mel 4 cm in size. This has not changed. Large cystic structure in the right renal hilum is present 4 cm in diameter. This appears to be dilated pelvis and calices. Patient may have a congenital UPJ obst ruction. Pattern is not substantially different from 2015. Ureters do not appear to be enlarged. Urin meghann bladder is well filled but not grossly dilated. No bladder wall thickening or mass. In the automation consultant ior left pelvis there is a 4.8 centimeter homogeneous fluid filled cystic mass. This measures larger than the prior study. This could be a chronic ovarian or paraovarian cyst. A large bladder diverticul um is possible. Contrast opacified urine is not yet reached the bladder. No adrenal abnormalities. No uterine abnormality. No right adnexal or right ovarian acute finding seen. No dilated bowel loops or focal bowel wall thickening. No acute GI findings seen. Oral CT contrast cotto s reached the distal rectum. No acute or destructive bony process. No significant vascular findings. IMPRESSION: CT chest imaging shows very advanced COPD pattern similar to comparison. No superimposed mass, infiltrate or failure findings. No acute CT abdomen or pelvis finding suspected.Cystic mass in the right renal hilum probably dilated pelvis and calices. This is not substantially different in may represent congenital UPJ obstruction. A 4.8 centimeter posterior left pelvic cystic mass could be ovarian in origin or could represent a bl adder diverticulum.
[2017-06-24] MEDS ORDERED: KCL 20 MEQ/100 mL IVPB 20 MEQ/100 ML BAG IV SCH (19:00)
[2017-06-24] MEDS: ARFORMOTEROL TARTRATE 15 MCG/2 ML VIAL.NEB NEB SCH (20:15)
[2017-06-24] MEDS: METOPROLOL TARTRATE 5 MG/5 ML INJ IV SCH (20:48)
[2017-06-24] MEDS: ATORVASTATIN 10 MG TAB PO SCH (21:00)
[2017-06-24] MEDS: METOPROLOL TAR 50 MG TAB PO SCH (21:00)
[2017-06-25] MEDS: METOPROLOL TARTRATE 5 MG/5 ML INJ IV SCH ×4 (03:34→21:00)
[2017-06-25] MEDS ORDERED: D50W 25 GM/50 ML SYRINGE IV ONE (05:20)
[2017-06-25 05:46] LABS: Absolute Lymphocytes (CBC) 0.5 K/uL (0.7-4.9); Absolute Monocytes 0.5 K/uL (0.1-1.3); Absolute Neutrophil 6.4 K/uL (1.8-8.0); Hematocrit 35.5 % (36.0-45.0); Lymphocytes % 7.1 % (15.3-44.8); MCH 29.7 pg (27.0-35.0); MCV 90.4 fL (80-100); MPV 8.7 fL (7.6-11.3); RBC Red Blood Cell Count 3.93 M/uL (3.86-4.86)
[2017-06-25 06:37] LABS: BUN Blood Urea Nitrogen 16 mg/dL (6-20); Bicarbonate 28 mEq/L (21-31); Magnesium 1.7 mg/dL (1.8-2.5); Potassium 4.2 mEq/L (3.6-5.0); Sodium Level 137 mEq/L (135-145); Thyroid Stimulating Hormone 3.17 uIU/mL (0.34-5.60)
[2017-06-25 06:44] LABS: Glucose Level 46 mg/dL (65-120)
[2017-06-25] MEDS ORDERED: MAGNESIUM SULFATE 1 gm IVPB 1 GM/100 ML BAG IV ONE (07:00)
[2017-06-25] MEDS: NA CHLORIDE 0.9% 1,000 ML IV SCH ×2 (07:02→18:46)
[2017-06-25] MEDS: ARFORMOTEROL TARTRATE 15 MCG/2 ML VIAL.NEB NEB SCH ×2 (08:41→19:54)
[2017-06-25] MEDS: METOPROLOL TAR 50 MG TAB PO SCH ×2 (09:00→21:25)
[2017-06-25] MEDS: PANTOPRAZOLE 40 MG INJ IVP SCH (09:36)
--- NOTE | 2017-06-25 15:50 | PN ---
Date of Progress Note: 06/25/2017 Subjective: The patient seen and examined. Chart reviewed and case discussed with RN and daughter a t the bedside. Treatment plan explained. All questions answered. The patient asked for something t o drink. Review of Systems: Negative except as above. Medications: Reviewed. Physical Examination: Vital Signs: Temperature 97.6, heart rate 78, blood pressure 149/67, respirations 18, O2 94% on 2 L via nasal cannula. General: Awake, alert, oriented x3. Elderly female, severely malnourished. BMI 12.5. Somewhat ill -appearing. CV: S1, S2. Peripheral pulses present. Respiratory: Moving air well bilaterally. No wheezing. No stridor. Gastrointestinal: Abdomen is soft, nontender, nondistended. Positive bowel sounds. Extremities: No clubbing, cyanosis, edema. Neurologic: Nonfocal. Laboratory Data: Sodium 137, potassium 4.2, chloride 101, CO2 28, BUN 16, creatinine 0.5, glucose 46 and recheck is 141, calcium 9.5, magnesium 1.7. WBC 7.6, H and H 11.7 and 35.5, platelets 272, neut rophils 83%. Assessment And Plan: An 87-year-old female with: 1.Dysphagia. Speech Therapy evaluation, recommended thin liquids and mechanically chopped diet. No need for a modified barium swallow study. GI has been consulted. We will go for EGD for further ev aluation. 2.Epigastric pain, improved. Cardiac enzymes negative. We will obtain echocardiogram. 3.Chest pain, resolved. Troponin negative, likely related to referred pain from GI. 4.Chronic obstructive pulmonary disease. We will continue breathing treatments and home inhalers. Stable, non-oxygen dependent. 5.Gastroesophageal reflux disease with possible esophagitis. We will continue IV PPI. 6.Hyperlipidemia. Continue statin. 7.History of hypertension, stable. 8.Failure to thrive. 9.Severe malnutrition. BMI 12.5. 10.Hypoglycemia, improved. We will monitor Accu-Cheks. 11.Hypomagnesemia, replace and monitor. 12.Gastrointestinal and deep venous thrombosis prophylaxis addressed. /MODL Voice ID: [id number] Report ID: [id number]
[2017-06-25] MEDS: ENOXAPARIN 40 MG/0.4 ML SQ SCH (16:49)
[2017-06-25] MEDS ORDERED: PRAVASTATIN 20 MG PO SCH (17:30)
[2017-06-25] MEDS: IPRATROPIUM BROM 0.5MG/2.5ML NEB PRN (19:54)
[2017-06-25] MEDS: ALBUTEROL 2.5 MG/3 ML NEB SOL NEB PRN (19:54)
[2017-06-25] MEDS ORDERED: METOPROLOL TAR 25 MG TAB PO SCH (21:00)
[2017-06-25] MEDS: ATORVASTATIN 10 MG TAB PO SCH (21:25)
[2017-06-25] MEDS: MIRTAZAPINE 15 MG TAB PO SCH (21:26)
[2017-06-25] MEDS: NYSTATIN 100MU/GM CREAM 15GM TOP SCH (22:59)
[2017-06-26] MEDS: IPRATROPIUM BROM 0.5MG/2.5ML NEB PRN (02:43)
[2017-06-26] MEDS: ALBUTEROL 2.5 MG/3 ML NEB SOL NEB PRN (02:43)
[2017-06-26 04:10] LABS: Urine Appearance CLEAR; Urine Bilirubin NEGATIVE (NEG); Urine Blood NEGATIVE (NEG); Urine Color YELLOW; Urine Glucose NEGATIVE (NEG); Urine Protein NEGATIVE (NEG); Urine Specific Gravity <=1.005 (1.005-1.030); Urine Urobilinogen 0.2 mg/dL (0.2-1.0); Urine pH 6.5 (5.0-7.0)
[2017-06-26 04:25] LABS: Urine Microscopic Reflex ORDER UMIC
[2017-06-26 04:38] LABS: Urine Bacteria <20 /HPF (<20); Urine Culture Reflex Order NOT NEEDED; Urine RBC <5 /HPF (NONE SEEN)
[2017-06-26] MEDS: LEVOTHYROXINE SOD 0.05 MG TABLET PO SCH (05:05)
[2017-06-26] MEDS: LORATADINE 10 MG TAB PO PRN ×2 (05:06→17:37)
[2017-06-26 05:57] LABS: BUN Blood Urea Nitrogen 6 mg/dL (6-20); Bicarbonate 35 mEq/L (21-31); Glucose Level 82 mg/dL (65-120); Magnesium 1.8 mg/dL (1.8-2.5); Potassium 3.3 mEq/L (3.6-5.0); Sodium Level 140 mEq/L (135-145)
[2017-06-26 06:19] LABS: Absolute Lymphocytes (CBC) 0.8 K/uL (0.7-4.9); Absolute Monocytes 0.5 K/uL (0.1-1.3); Absolute Neutrophil 4.4 K/uL (1.8-8.0); Basophils % 1.5 % (0-1.3); Eosinophils % 3.6 % (0-4.4); Hematocrit 38.6 % (36.0-45.0); Lymphocytes % 13.9 % (15.3-44.8); MCH 29.6 pg (27.0-35.0); MCV 88.7 fL (80-100); MPV 8.7 fL (7.6-11.3); Monocytes % 8.7 % (3.3-12.3); RBC Red Blood Cell Count 4.35 M/uL (3.86-4.86)
[2017-06-26] MEDS ORDERED: POTASSIUM 25 MEQ EFFERV TAB PO ONE (06:30)
[2017-06-26] MEDS ORDERED: MAGNESIUM SULFATE 1 gm IVPB 1 GM/100 ML BAG IV ONE (06:30)
[2017-06-26] MEDS: ARFORMOTEROL TARTRATE 15 MCG/2 ML VIAL.NEB NEB SCH ×2 (07:33→19:20)
[2017-06-26] MEDS: NYSTATIN 100MU/GM CREAM 15GM TOP SCH ×2 (09:38→21:48)
[2017-06-26] MEDS: HOME MED 1 EA UNK (Umeclidinium Bromide [Incruse Ellipta] 62.5 MCG) IH SCH (09:38)
[2017-06-26] MEDS: METOPROLOL TAR 50 MG TAB PO SCH ×2 (09:39→20:58)
[2017-06-26] MEDS: PANTOPRAZOLE 40 MG INJ IVP SCH (09:39)
[2017-06-26] MEDS: NA CHLORIDE 0.9% 1,000 ML IV SCH ×2 (09:40→21:20)
[2017-06-26] MEDS ORDERED: HYDROCORTISONE 1 % CREAM 30GM TOP PRN (12:19)
--- NOTE | 2017-06-26 13:57 | PN ---
Date of Progress Note: 06/26/2017 Subjective: The patient seen and examined. Chart reviewed and case discussed with RN. Daughter at the bedside. Daughter feels that the patient will likely need to go to a custodial or SNF and ariza s not feel comfortable with the patient going back to assisted living. Review of Systems: Negative except as above. Medications: Reviewed. Physical Examination: Vital Signs: Temperature 97.2, heart rate 82, blood pressure 197/79, respirations 14, O2 saturation 100% on 2 L via nasal cannula. General: Awake, alert, oriented x3. Some mild distress, ill-appearing, elderly cachectic female. B NM 12.5. CV: S1, S2. No murmurs. Regular rate and rhythm. Peripheral pulses present. Respiratory: Moving air well bilaterally. No wheezing. No stridor. Gastrointestinal: Abdomen is soft, nontender, nondistended. Positive bowel sounds. Extremities: No clubbing, cyanosis, edema. Neurologic: Nonfocal. Skin: The patient has dry macular lesion on her back that is pruritic. Laboratory Data: Sodium 140, potassium 3.3, chloride 100, CO2 35, BUN 6, creatinine 0.45, glucose 82 , calcium 9.4, magnesium 1.8. WBC 6, H and H 12.9 and 38.6, platelets 287, neutrophils 72%. Assessment And Plan: An 87-year-old female with: 1.Dysphagia. The patient has altered diet. GI consulted. Anticipate EGD. 2.Epigastric pain, resolved. 3.Chest pain, resolved. Troponin negative. No acute coronary syndrome. 4.Chronic obstructive pulmonary disease. Continue breathing treatments. 5.Gastroesophageal reflux disease with possible esophagitis. We will continue PPI and follow up GI. 6.Hyperlipidemia, statin. 7.Essential hypertension, stable. 8.Failure to thrive. 9.Severe malnutrition, BMI 12. 10.Hypoglycemia, improved. 11.Hypomagnesemia, replace and monitor. 12.Hypokalemia. We will replace and monitor. 13.Gastrointestinal and deep venous thrombosis prophylaxis addressed. Plan: N.p.o. after midnight. We will discuss with Dr. Mercer in a.m., need for possible EGD. SA/MODL Voice ID: [id number] Report ID: [id number]
[2017-06-26] MEDS: ENOXAPARIN 40 MG/0.4 ML SQ SCH (17:37)
[2017-06-26] MEDS: MIRTAZAPINE 15 MG TAB PO SCH (20:57)
[2017-06-26] MEDS: ATORVASTATIN 10 MG TAB PO SCH (20:57)
[2017-06-27] MEDS: NA CHLORIDE 0.9% 1,000 ML IV SCH ×3 (00:44→17:46)
[2017-06-27 06:18] LABS: Bicarbonate 36 mEq/L (21-31); Glucose Level 78 mg/dL (65-120); Magnesium 1.8 mg/dL (1.8-2.5); Potassium 3.8 mEq/L (3.6-5.0); Sodium Level 142 mEq/L (135-145)
[2017-06-27 06:22] LABS: BUN Blood Urea Nitrogen < 5 mg/dL (6-20)
[2017-06-27] MEDS: LEVOTHYROXINE SOD 0.05 MG TABLET PO SCH (06:32)
[2017-06-27 06:46] LABS: Absolute Lymphocytes (CBC) 0.6 K/uL (0.7-4.9); Absolute Monocytes 0.5 K/uL (0.1-1.3); Absolute Neutrophil 4.8 K/uL (1.8-8.0); Basophils % 0.9 % (0-1.3); Hematocrit 34.9 % (36.0-45.0); Lymphocytes % 9.3 % (15.3-44.8); MCH 29.9 pg (27.0-35.0); MCV 89.2 fL (80-100); MPV 8.1 fL (7.6-11.3); Monocytes % 8.1 % (3.3-12.3); RBC Red Blood Cell Count 3.91 M/uL (3.86-4.86)
[2017-06-27] MEDS ORDERED: MAGNESIUM SULFATE 1 gm IVPB 1 GM/100 ML BAG IV ONE (08:00)
--- NOTE | 2017-06-27 08:24 | ECHO ---
HEIGHT: 4 ft 11 in WEIGHT: 62 lb 0 oz DATE OF STUDY: 06/24/[address]: Rehan Raymond DO 2-DIMENSIONAL: YES M.MODE: YES DOPPLER: YES COLOR FLOW: YES TDS: NO PORTABLE: NO DEFINITY: NO BUBBLE STUDY: NO DIAGNOSIS: CHEST PAIN CARDIAC HISTORY: CATHERIZATION: NO SURGERY: NO PROSTHETIC VALVE: NO PACEMAKER: NO MEASUREMENTS (cm) DIASTOLIC (NORMALS) SYSTOLIC (NORMALS) IVSd 0.9 (0.6-1.2) LA Diam 2.4 (1.9-4.0) LVEF 73% LVIDd 3.0 (3.5-5.7) LVIDs 1.8 (2.0-3.5) %FS 40% LVPWd 0.8 (0.6-1.2) Ao Diam 2.2 (2.0-3.7) 2 DIMENSIONAL ASSESSMENT: RIGHT ATRIUM: NORMAL LEFT ATRIUM: NORMAL RIGHT VENTRICLE: NORMAL LEFT VENTRICLE: NORMAL TRICUSPID VALVE: NORMAL MITRAL VALVE: MITRAL ANNULAR CALCIFICATION PULMONIC VALVE: NORMAL AORTIC VALVE: SCLEROSIS PERICARDIAL EFFUSION: NONE AORTIC ROOT: NORMAL LEFT VENTRICULAR WALL MOTION: NORMAL DOPPLER/COLOR FLOW: MILD TRICUSPID REGURGITATION. COMMENTS: NORMAL LEFT VENTRICULAR SIZE AND FUNCTION. MILD TRICUSPID REGURGITATION. MITRAL ANNULAR CALCIFICATION. AORTIC SCLEROSIS. TECHNOLOGIST: Tony STEPHEN
[2017-06-27] MEDS ORDERED: KCL 20 MEQ/100 mL IVPB 20 MEQ/100 ML BAG IV SCH (09:00)
[2017-06-27] MEDS: METOPROLOL TAR 50 MG TAB PO SCH ×2 (09:00→20:39)
[2017-06-27] MEDS: PANTOPRAZOLE 40 MG INJ IVP SCH (09:10)
[2017-06-27] MEDS: HOME MED 1 EA UNK (Umeclidinium Bromide [Incruse Ellipta] 62.5 MCG) IH SCH (09:10)
[2017-06-27] MEDS: NYSTATIN 100MU/GM CREAM 15GM TOP SCH ×2 (09:11→20:52)
[2017-06-27] MEDS: ARFORMOTEROL TARTRATE 15 MCG/2 ML VIAL.NEB NEB SCH ×2 (11:05→20:00)
--- NOTE | 2017-06-27 14:04 | PN ---
Date of Progress Note: 06/27/2017 Subjective: The patient seen and examined. Chart reviewed and case discussed with RN. The patient awaiting EGD by GI. Review of Systems: Negative except as above. Medications: Reviewed. Physical Examination: Vital Signs: Temperature 98.8, heart rate 73, blood pressure 201/92, recheck is 160/84, respirations 18, O2 94% on 2 L via nasal cannula. General: Awake, alert, oriented x3. Elderly female, somewhat ill-appearing, cachectic. BMI 12.5. CV: S1, S2. No murmurs. Peripheral pulses present. Respiratory: Moving air well bilaterally. No wheezing. Gastrointestinal: Abdomen is soft, nontender, and nondistended. Positive bowel sounds. Extremities: No clubbing, cyanosis, edema. Neurologic: Nonfocal. Laboratory Data: Sodium 142, potassium 3.8, chloride 101, CO2 36, BUN less than 5, creatinine 0.43, glucose 78, calcium 8.8. WBC 6.2, H and H 11.7 and 34.9, platelets 249, neutrophils 76%. Echocardio gram shows EF 73%, mild tricuspid regurg, aortic sclerosis. Assessment And Plan: An 87-year-old female with: 1.Dysphagia. The patient is on modified diet. Awaiting EGD by GI. 2.Epigastric pain, resolved. 3.Chest pain, resolved. Acute coronary syndrome ruled out. 4.Chronic obstructive pulmonary disease. Continue with breathing treatments and inhaler. 5.Gastroesophageal reflux disease with possible esophagitis. We will continue PPI. 6.Hyperlipidemia, statin. 7.Essential hypertension, stable. 8.Failure to thrive. 9.Severe malnutrition, BMI 12. 10.Hypoglycemia, improved. 11.Hypomagnesemia, replace and monitor. 12.Hypokalemia, corrected. We will replace and monitor. 13.Gastrointestinal and deep venous thrombosis prophylaxis addressed. Plan: Adjust blood pressure medications p.r.n. Anticipate EGD. /RICKEY Voice ID: [id number] Report ID: [id number]
--- NOTE | 2017-06-27 15:54 | RAD REPORT ---
EXAM DESCRIPTION: RAD - Barium Swallow Modified - 06/27/2017 3:48 pm CLINICAL HISTORY: Dysphagia FINDINGS: Flash Laryngeal penetration: cleared with thin via straw and honey Mild Pharyngeal residue: vallecular, UES, with all consistencies Mild delay in swallow reflex. Reduced hyolaryngeal protraction. Reduced opening of the UES, Possible out pouching of the posterior pharyngeal wall superior to the UE S.
--- NOTE | 2017-06-27 16:02 | RAD REPORT ---
EXAM DESCRIPTION: RAD - Esophagram Only - 06/27/2017 3:48 pm CLINICAL HISTORY: Dysphagia FINDINGS: The mucosal folds of the esophagus appear thickened. No permanent filling defects, obstruc ting or constricting lesions are noted. Gastroesophageal reflux was not seen. IMPRESSION: Thickening of the mucosal folds of the esophagus may indicate an esophagitis
[2017-06-27] MEDS: ENOXAPARIN 40 MG/0.4 ML SQ SCH (17:46)
[2017-06-27] MEDS: MIRTAZAPINE 15 MG TAB PO SCH (20:38)
[2017-06-27] MEDS: ATORVASTATIN 10 MG TAB PO SCH (20:39)
[2017-06-27] MEDS: ENSURE ENLIVE 237 ML CAN PO SCH (20:52)
[2017-06-28] MEDS: NA CHLORIDE 0.9% 1,000 ML IV SCH (01:01)
[2017-06-28] MEDS: LEVOTHYROXINE SOD 0.05 MG TABLET PO SCH (05:38)
[2017-06-28 06:19] LABS: BUN Blood Urea Nitrogen 6 mg/dL (6-20); Bicarbonate 35 mEq/L (21-31); Glucose Level 76 mg/dL (65-120); Magnesium 1.9 mg/dL (1.8-2.5); Potassium 4.5 mEq/L (3.6-5.0); Sodium Level 141 mEq/L (135-145)
[2017-06-28] MEDS: ARFORMOTEROL TARTRATE 15 MCG/2 ML VIAL.NEB NEB SCH (07:45)
[2017-06-28] MEDS: ENSURE ENLIVE 237 ML CAN PO SCH (09:00)
[2017-06-28] MEDS: NYSTATIN 100MU/GM CREAM 15GM TOP SCH (10:03)
[2017-06-28] MEDS: HOME MED 1 EA UNK (Umeclidinium Bromide [Incruse Ellipta] 62.5 MCG) IH SCH (10:03)
[2017-06-28] MEDS: METOPROLOL TAR 50 MG TAB PO SCH (10:04)
[2017-06-28] MEDS: PANTOPRAZOLE 40 MG INJ IVP SCH (10:05)
[2017-06-28 11:43] VITALS: O2SAT 93
[2017-06-28 12:04] VITALS: BP 187/88; TEMP 98.8
--- NOTE | 2017-06-29 13:48 | DS ---
Date of Discharge: 06/28/2017 Consultants: Ankit Mercer M.D., GI. Procedures: None. Admitting Diagnoses: 1.Chest pain. 2.Epigastric pain. 3.Dysphagia. 4.Chronic obstructive pulmonary disease. 5.Gastroesophageal reflux disease. 6.Hyperlipidemia. 7.Hypertension. Discharge Diagnoses: 1.Chest pain, resolved, atypical. 2.Abdominal pain, resolved. 3.Dysphagia. Modified barium swallow study done. The patient on altered diet. 4.Chronic obstructive pulmonary disease. Continue breathing treatments. 5.Gastroesophageal reflux disease with esophagitis, on PPI. 6.Hyperlipidemia, statin. 7.Essential hypertension, stable. 8.Failure to thrive. 9.Severe malnutrition, BMI 12. 10.Hypoglycemia, improved. 11.Hypomagnesemia, replaced. 12.Hypokalemia, corrected. Hospital Course: The patient is an 87-year-old female, who came in with multiple symptoms including chest pain, epigastric pain, difficulty swallowing. The patient was scheduled to have EGD by Dr. Edith alba as an outpatient. The patient was worked up for chest pain. ACS was ruled out. Her troponin le vels were negative. The patient's TSH was also normal. She did have some hypoglycemic episodes. Sh e was started on IV fluids. She did have some electrolyte abnormalities, which were corrected. GI w as consulted. Dr. Mercer was contacted by admitting physician. The patient did have modified barium swallow study and esophagram done. The patient also has a CT of the abdomen, chest, and pelvis done . No significant abnormalities were seen. It did show COPD, no infiltrates. The patient has a cyst ic mass in the right renal hilum, probably dilated pelvis and calyces, not substantially different, 4 .8 cm posterior left pelvic cyst could be ovarian origin, could represent a bladder diverticulum. Th e patient was able to tolerate her modified diet. She was seen by Speech Therapy. Echocardiogram wa s also done, which showed EF 73%. The patient was then cleared for discharge and was sent home in a stable condition. Activity: Fall precautions. Diet: Altered diet. Followup: Follow up with primary care physician in 2-3 days. Follow up with NANDA, Dr. Mercer in 2 wee ks. Return to ER for worsening condition. Medications: As per medication reconciliation list. Physical Examination: General: Awake, alert, oriented, no acute distress. CV: S1, S2. No murmurs. Respiratory: Moving air well bilaterally. No wheezing. Abdomen: Soft, nontender, and nondistended. Positive bowel sounds. Extremities: No clubbing, cyanosis, edema. Neurologic: Nonfocal. SA/MODL Voice ID: [id number] Report ID: [id number]
== END 2017-06-28 13:39 | disposition home or self-care (01) ==
LOC: ER 11:29 → ERHOLD 15:45 → 4TH 17:25
PROVIDERS: ADMIT Family Medicine; ATTEND Family Medicine
DX: R07.89 Other chest pain (principal); R10.13 Epigastric pain; R13.10 Dysphagia, unspecified; J44.9 Chronic obstructive pulmonary disease, unspecified; K21.9 Gastro-esophageal reflux disease without esophagitis; E78.5 Hyperlipidemia, unspecified; I10 Essential (primary) hypertension; R62.7 Adult failure to thrive; E43 Unspecified severe protein-calorie malnutrition; Z68.1 Body mass index [BMI] 19.9 or less, adult; E16.2 Hypoglycemia, unspecified; E83.42 Hypomagnesemia; E87.6 Hypokalemia
CPT/HCPCS: 36415; 70450; 71045; 71260; 74177; 74220; 74230; 80048; 80076; 81003; 81015; 82550; 82553; 82962; 83735; 83880; 84132; 84439; 84443; 84484; 85025; 85610; 85730; 93005; 93306; 96365; 96366; 96375; 97163; 99285; C9113; G0378; J1650; J3475; J7030; J7605; Q9967

== ENCOUNTER 2018-09-17 18:39 | Emergency (ER) | payer OTHER ==
--- OUTSIDE RECORDS SUMMARY | 2018-09-17 18:43 | XMS REPORT ---
:1930 Author Organization [employer] Care Team Providers Name Role Phone Love, Na Provider Role Unavailable Allergies, Adverse Reactions, Alerts Substance Reaction Event Type N.K.D.A. 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, unspecified whether recurrent Assessment Anxiety F41.9 Active Assessment Weakness R53.1 Active Assessment Esophagitis K20.9 Active Assessment Body mass index (BMI) less than 16.5 Z68.1 Active Assessment Failure to thrive in adult R62.7 Active Problem Hyperlipidemia E78.5 Active Assessment DNR (do not resuscitate) Z66 Active Problem Weakness R53.1 Active Assessment Hematochezia K92.1 Active Problem Anxiety F41.9 Active Problem DNR (do not resuscitate) Z66 Active Problem Hematochezia K92.1 Active Problem 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, unspecified whether recurrent Problem Chronic bronchitis, unspecified J42 Active chronic bronchitis type Problem Anorexia R63.0 Active Problem End stage COPD J44.9 Active Assessment End stage COPD J44.9 Active Problem Esophagitis K20.9 Active Problem Hospital discharge follow-up Z09 Active Problem Failure to thrive in adult R62.7 Active Problem Body mass index (BMI) less than 16.5 Z68.1 Active Problem Allergic rhinitis, seasonal J30.2 Active Problem Hydronephrosis N13.30 Active Problem Urinary tract infection, site not N39.0 Active specified Problem Hematuria, unspecified R31.9 Active Problem Hypothyroidism E03.9 Active Problem COPD (chronic obstructive pulmonary J44.9 Active disease) Problem Weight loss R63.4 Active Problem HTN (hypertension) I10 Active Medications Medication Code Code Instructions Start End Status Dosage System Date Date Debrox [facility] 02846165590 6.5 % Otic Active 5 drops Twice a day into affected ear ProAir HFA [facility] 36144806124 108 (90 Base) Active 2 puffs as MCG/ACT needed Inhalation every 6 hrs Levothyroxine [facility] 16345601889 25 MCG Orally Active TAKE ONE Sodium TABLET BY MOUTH EVERY DAY Norvasc [facility] 39828115796 5 MG Orally Active 1 tablet Once a day Levothyroxine [facility] 69228255160 50 Active TAKE ONE Sodium TABLET BY MOUTH EVERY DAY Claritin [facility] 74182751471 10 MG Orally Active 1 tablet Once a day Xanax [facility] 34808160662 0.25 MG Orally Active 1 tablet Twice a day Incruse Ellipta ND 77744791214 62.5 MCG/INH Apr 27, Active 1 puff Inhalation Once 2017 a day Incruse Ellipta [facility] 39531086895 62.5 MCG/IN Active 1 puff Inhalation Once a day Pravastatin [facility] 97994676836 20 MG Orally Active 1 tablet Sodium Once a day Mirtazapine [facility] 95144759377 7.5 Active TAKE ONE TABLET BY MOUTH EVERY NIGHT AT BEDTIME Metoprolol [facility] 77744326568 25 MG Orally Active 2 tablet Tartrate Twice a day with food Boniva [facility] 36901217405 150 MG Orally Active 1 tablet Vitamin D [facility] 13288724578 58283 UNIT Active 1 capsule (Ergocalciferol) Orally Pantoprazole [facility] 76192714973 40 MG Orally Active 1 tablet Sodium Once a day Metoprolol [facility] 77200651307 50 MG Orally July 26, Active 1.5 tablet Tartrate Twice a day 2017 with food Mirtazapine [facility] 19577449141 7.5 MG Orally Active 2 tablets Once a day at bedtime Incruse Ellipta [facility] 96813954173 62.5 MCG/INH April Active 1 puff Inhalation Once 2017 a day Amlodipine [facility] 56739960459 10 MG Orally Active 1 tablet Besylate Once a day Results No Known Results Summary Purpose [employer] Submission
[2018-09-17] MEDS ORDERED: LIDOCAINE 1% W/EPI 1:100,000 MDV 20 ML VIAL ONE (18:59)
[2018-09-17 19:10] LABS: Arterial Blood Carboxyhemoglob 0.9 % (0-1.5); Blood Gas Oxyhemoglobin 86.8 % (94-97); Blood O2 Saturation 88.2 % (92-98.5)
[2018-09-17] MEDS ORDERED: LIDOCAINE 1% 20 ML MDV ONE (19:10)
--- NOTE | 2018-09-17 19:16 | RAD REPORT ---
EXAM DESCRIPTION: RAD - Chest Single View - 09/17/2018 7:10 pm CLINICAL HISTORY: TRAUMA Chest pain. COMPARISON: Chest Single View dated 06/24/2017; Chest Single View dated 06/15/2017; Chest Single View dated 03/04/2016; Chest Single View dated 03/02/2016 FINDINGS: Portable technique limits examination quality. Diffuse emphysema is present. The heart is mildly prominent with atherosclerotic and tortuous thoraci c aorta. No displaced fractures.
--- NOTE | 2018-09-17 19:16 | RAD REPORT ---
EXAM DESCRIPTION: RAD - Pelvis - 09/17/2018 7:10 pm CLINICAL HISTORY: BLUNT TRAUMA Fall, trauma COMPARISON: <Comparisons> FINDINGS: Diffuse osteopenia is seen. No acute fracture or dislocation seen. Prominent vascular calc ifications.
--- NOTE | 2018-09-17 19:22 | RAD REPORT ---
EXAM DESCRIPTION: CT - [id number] - 09/17/2018 7:11 pm CLINICAL HISTORY: Trauma, head and neck injury. SMASH INJURY COMPARISON: No comparisons TECHNIQUE: Axial 5 mm thick images of the head were obtained. Axial 2 mm thick images of the cervical spine were obtained with sagittal and coronal reconstruction images generated and reviewed. All CT scans are performed using dose optimization technique as appropriate and may include automated exposure control or mA/KV adjustment according to patient size. FINDINGS: CT HEAD WITHOUT CONTRAST: No acute hemorrhage, hydrocephalus or extra-axial collection is identified.Moderate generalized brain atrophy is present with advanced periventricular and deep white matter chronic microvascular ischemi c changes.No areas of brain edema or midline shift. The paranasal sinuses and mastoids are clear.The calvarium is intact. CT CERVICAL SPINE WITHOUT CONTRAST: No fracture or subluxation.4 mm degenerative anterolisthesis of C3 on 4 is seen. Disc thinning with p osterior osteophyte is noted at C4-5 C5-6.No prevertebral soft tissues swelling is identified. The od ontoid is normal and the lateral masses are symmetric. Heavy carotid atherosclerosis. The upper lung alicea are emphysematous. IMPRESSION: No acute intracranial or cervical spine findings. Prominent cervical degenerative change.
[2018-09-17] MEDS ORDERED: ACETAMINOPHEN 160 MG/5 ML UCUP ONE (20:16)
[2018-09-17] MEDS ORDERED: TETANUS & DIPHTHERIA TOX,ADULT 0.5 ML VIAL ONE (20:16)
--- NOTE | 2018-09-17 20:47 | ER ---
Nurse's Notes [facility] Name: Tamiko Betts Age: 88 yrs Sex: Female : 1930 Arrival Date: 09/17/2018 Time: 18:41 Bed 4 Private MD: Diagnosis: Laceration without foreign body of scalp;Concussion without loss of consciousness Presentation: 09/17 18:38 Presenting complaint: EMS states: Unwitnessed fall from standing while ambulating to bathroom. Denies LOC. On scene pt was AOx3, SpO2 55% on RA, 70s on 4LNC. Laceration to left side of head, bleeding controlled, dressing in place. 18:41 Care prior to arrival: Bleeding of injury controlled. Injury cleansed. Mechanism of hb Injury: Fall from standing position. Trauma event details: Injury occurred in the [facility], Injury occurred: at home. Injury occurred: September 17, 2018. 18:41 Acuity: CARMINA 2 hb 18:41 Method Of Arrival: EMS: [facility] 18:46 Transition of care: patient was not received from another setting of care. Onset of symptoms was September 17, 2018. Risk Assessment: Do you want to hurt yourself or someone else? Patient reports no desire to harm self or others. Initial Sepsis Screen: Does the patient meet any 2 criteria? No. Patient's initial sepsis screen is negative. Does the patient have a suspected source of infection? No. Patient's initial sepsis screen is negative. Triage Assessment: 18:56 General: Appears in no apparent distress. comfortable, Behavior is calm, cooperative, aj1 appropriate for age. Pain: Complains of pain in top of head. Trauma Activation: Alert Physician: ED Physician; Name: Dr. Drake; Notified At: 18:38; Arrived At: 18:38 Physician: General Surgeon; Name: ; Notified At: 18:38; Arrived At: Physician: Radiology; Name: ; Notified At: 18:38; Arrived At: 18:38 Physician: Respiratory; Name: ; Notified At: 18:38; Arrived At: Physician: Lab; Name: ; Notified At: 18:38; Arrived At: Historical: - Allergies: 18:45 No Known Allergies; hb - Home Meds: 18:50 sertraline 25 mg oral tab 1 tab once daily [Active]; amlodipine 10 mg oral tab 1 tab aj once daily [Active]; metoprolol tartrate 50 mg Oral tab 1 tab 2 times per day [Active]; levothyroxine 50 mcg tab 1 tab once daily [Active]; mirtazapine 7.5 mg Oral tab nightly [Active]; - PMHx: 18:50 COPD; High Cholesterol; Hypertension; aj1 - Social history:: Smoking status: Patient/guardian denies using tobacco. - Immunization history: Last tetanus immunization: unknown. - Ebola Screening: : No symptoms or risks identified at this time. Screenin:44 Abuse screen: Denies threats or abuse. Denies injuries from another. Tuberculosis hb screening: No symptoms or risk factors identified. 18:57 Nutritional screening: Patient is on hospice care, no intervention for dietary done at [facility] this time. 19:36 Fall Risk Fall in past 12 months (25 points). ak1 Primary Survey: 18:51 NO uncontrolled hemorrhage observed. A: The patient is alert. Airway: patent. aj1 Breathing/Chest: Respiratory pattern: regular, Respiratory effort: spontaneous, unlabored, Chest inspection: symmetrical rise and fall of the chest. Circulation: Heart tones present. Skin color: pale. Disability Alert. Exposure/Environment: Obvious injury(ies) are noted at this time: Laceration noted to scalp, bleeding lightly. Dr. Drake at bedside to assess patient. 19:35 Reassessment Airway Airway Patent Breathing/Chest Respiratory pattern Regular ak1 Respiratory effort Spontaneous Unlabored. Secondary Survey: 18:52 HEENT: Head Other Laceration noted to scalp. Gastrointestinal: No deficits noted. : aj1 No deficits noted. Musculoskeletal: Range of motion: intact in all extremities. Assessment: 18:52 General: Appears in no apparent distress. comfortable, cachectic, Behavior is calm, aj1 cooperative, appropriate for age. Pain: Complains of pain in top of head and neck Pain currently is 6 out of 10 on a pain scale. Neuro: Level of Consciousness is awake, alert, obeys commands, Oriented to person, place, time, situation, Store Operations Specialist are equal bilaterally Speech is normal, Facial symmetry appears normal, Reports headache States that she fell when she was going to the bathroom and hit her head, denies LOC, denies vomiting. EENT: No signs and/or symptoms were reported regarding the EENT system. Cardiovascular: Patient's skin is warm and dry. Respiratory: Airway is patent Respiratory effort is even, unlabored, Respiratory pattern is regular, symmetrical. GI: No signs and/or symptoms were reported involving the gastrointestinal system. : No signs and/or symptoms were reported regarding the genitourinary system. Derm: Skin is pale. Musculoskeletal: Range of motion: intact in all extremities. Injury Description: Laceration sustained to top of head. 20:11 Reassessment: Patient appears in no apparent distress at this time. Patient and/or ak1 family updated on plan of care and expected duration. Pain level reassessed. Patient is alert, oriented x 3, equal unlabored respirations, skin warm/dry/pink. pt c/o headache, DR. Godfrey notified with verbal orders for liquid tylenol as per pt and family request since pt can not swallow pills. pt oxygen dependent at home. pt remains on 4L NC. 20:54 Reassessment: Patient appears in no apparent distress at this time. No changes from ak1 previously documented assessment. Patient and/or family updated on plan of care and expected duration. Pain level reassessed. Patient is alert, oriented x 3, equal unlabored respirations, skin warm/dry/pink. 21:15 Reassessment: pt assisted to wheelchair with oxygen then to ER restroom before being ak1 wheeled to daughter's car. Vital Signs: 18:44 BP 124 / 63; Pulse 78; Resp 24; Pulse Ox 90% on 4 lpm NC; hb 19:01 Temp 97.7; aj1 20:55 BP 115 / 57; Pulse 79; Resp 16; Temp 97.7; Pulse Ox 97% on 4 lpm NC; ak1 Ayana Coma Score: 18:52 Eye Response: spontaneous(4). Verbal Response: oriented(5). Motor Response: obeys aj1 commands(6). Total: 15. Trauma Score (Adult): 18:52 Eye Response: spontaneous(1); Verbal Response: oriented(1); Motor Response: obeys aj1 commands(2); Systolic BP: > 89 mm Hg(4); Respiratory Rate: 10 to 29 per min(4); [place] Score: 15; Trauma Score: 12 ED Course: 18:41 Patient arrived in ED. hb 18:43 Hermelindo Drake MD is Attending Physician. gs 18:44 Triage completed. hb 18:44 Arm band placed on. hb 18:47 Laly Mota, RN is Primary Nurse. aj1 18:52 Patient has correct armband on for positive identification. Bed in low position. Call aj1 light in reach. Side rails up X2. Family at bedside. Oxygen administration via nasal cannula \T\ 4L/min. 18:52 Oxygen administration via nasal cannula \T\ 4L/min. aj1 18:56 Radiology exam delayed due to DR DRAKE WANTS TO STITCH PT BEFORE PT GOES TO CT. bq 18:57 No provider procedures requiring assistance completed. aj1 19:09 CT completed. Patient tolerated procedure well. Patient moved back from CT. bq 19:11 XRAY Chest (1 view) In Process Unspecified. EDMS 19:11 Pelvis XRAY In Process Unspecified. EDMS 19:13 CT Head C Spine In Process Unspecified. EDMS 19:18 Attending Physician role handed off by Hermelindo Drake MD tw4 19:18 Abdi Godfrey MD is Attending Physician. tw4 19:35 Thermoregulation: warm blanket given to patient. ak1 20:54 Patient did not have IV access during this emergency room visit. ak1 Administered Medications: 20:10 Drug: Tylenol Liquid 320 mg Route: PO; ak1 20:53 Follow up: Response: No adverse reaction ak1 20:11 Drug: Tetanus-Diphtheria Toxoid Adult 0.5 ml {Distribution Accounting Clerk: [email or web address]. Exp: ak1 05/20/2020. Lot #: [id number]. } Route: IM; Site: right deltoid; 20:53 Follow up: Response: No adverse reaction ak1 20:15 Drug: Lidocaine-Epinephrine -1%: (1:100,000) 5 ml {Note: at bedside for ERP use.} ak1 Volume: 20 ml; Route: Infiltration; Intake: 19:36 PO: 0ml; Total: 0ml. ak1 Outcome: 20:48 Discharge ordered by . tw4 20:54 Discharged to home via wheelchair, with family, with home oxygen ak1 20:54 Condition: stable 20:54 Discharge instructions given to patient, family, Instructed on discharge instructions, follow up and referral plans. Demonstrated understanding of instructions, follow-up care, wound care. 21:15 Patient left the ED. ak1 Signatures: Dispatcher [employer] Laly Rick, RN RN aj1 Alivia Naranjo Amber, RN RN ak1 Karen Poe RN RN hb Starr, Gregory, MD MD Abdi Godfrey MD MD tw4
--- NOTE | 2018-09-17 20:47 | EDPHYS ---
Physician Documentation [facility] Name: Tamiko Betts Age: 88 yrs Sex: Female : 1930 Arrival Date: 09/17/2018 Time: 18:41 Bed 4 Private MD: ED Physician Abdi Godfrey HPI: 09/17 19:57 This 88 yrs old Female presents to ER via EMS with complaints of Fall Injury. tw4 19:57 Details of fall: The patient fell from an upright position. Onset: The symptoms/episode tw4 began/occurred today. Associated injuries: The patient sustained injury to the head. Associated injuries: The patient sustained injury to the head, laceration. Severity of symptoms: At their worst the symptoms were moderate, in the emergency department the symptoms are unchanged. The patient has not experienced similar symptoms in the past. Historical: - Allergies: 18:45 No Known Allergies; hb - Home Meds: 18:50 sertraline 25 mg oral tab 1 tab once daily [Active]; amlodipine 10 mg oral tab 1 tab aj1 once daily [Active]; metoprolol tartrate 50 mg Oral tab 1 tab 2 times per day [Active]; levothyroxine 50 mcg tab 1 tab once daily [Active]; mirtazapine 7.5 mg Oral tab nightly [Active]; - PMHx: 18:50 COPD; High Cholesterol; Hypertension; aj1 - Social history:: Smoking status: Patient/guardian denies using tobacco. - Immunization history: Last tetanus immunization: unknown. - Ebola Screening: : No symptoms or risks identified at this time. ROS: 19:57 Constitutional: Negative for fever, chills, and weight loss, Eyes: Negative for injury, tw4 pain, redness, and discharge, Cardiovascular: Negative for chest pain, palpitations, and edema, Respiratory: Negative for shortness of breath, cough, wheezing, and pleuritic chest pain, Abdomen/GI: Negative for abdominal pain, nausea, vomiting, diarrhea, and constipation, Back: Negative for injury and pain, MS/Extremity: Negative for injury and deformity, Skin: Negative for injury, rash, and discoloration. Exam: 19:57 Constitutional: This is a well developed, well nourished patient who is awake, alert, tw4 and in no acute distress. Cardiovascular: Regular rate and rhythm with a normal S1 and S2. No gallops, murmurs, or rubs. Normal PMI, no JVD. No pulse deficits. Respiratory: Lungs have equal breath sounds bilaterally, clear to auscultation and percussion. No rales, rhonchi or wheezes noted. No increased work of breathing, no retractions or nasal flaring. Abdomen/GI: Soft, non-tender, with normal bowel sounds. No distension or tympany. No guarding or rebound. No evidence of tenderness throughout. Back: No spinal tenderness. No costovertebral tenderness. Full range of motion. MS/ Extremity: Pulses equal, no cyanosis. Neurovascular intact. Full, normal range of motion. Neuro: Awake and alert, GCS 15, oriented to person, place, time, and situation. Cranial nerves II-XII grossly intact. Motor strength 5/5 in all extremities. Sensory grossly intact. Cerebellar exam normal. Normal gait. 19:57 Head/face: Noted is a laceration(s), 3 cm(s). Vital Signs: 18:44 BP 124 / 63; Pulse 78; Resp 24; Pulse Ox 90% on 4 lpm NC; hb 19:01 Temp 97.7; aj1 20:55 BP 115 / 57; Pulse 79; Resp 16; Temp 97.7; Pulse Ox 97% on 4 lpm NC; ak1 Ayana Coma Score: 18:52 Eye Response: spontaneous(4). Verbal Response: oriented(5). Motor Response: obeys aj1 commands(6). Total: 15. Trauma Score (Adult): 18:52 Eye Response: spontaneous(1); Verbal Response: oriented(1); Motor Response: obeys aj1 commands(2); Systolic BP: > 89 mm Hg(4); Respiratory Rate: 10 to 29 per min(4); Ayana Score: 15; Trauma Score: 12 MDM: 19:18 Patient medically screened. tw4 09/18 02:53 Differential diagnosis: abrasion. Data reviewed: vital signs, nurses notes. Data tw4 interpreted: Pulse oximetry: Interpretation: normal. Counseling: I had a detailed discussion with the patient and/or guardian regarding: the historical points, exam findings, and any diagnostic results supporting the discharge/admit diagnosis. Special discussion: I discussed with the patient/guardian in detail that at this point there is no indication for admission to the hospital. It is understood, however, that if the symptoms persist or worsen the patient needs to return immediately for re-evaluation. 09/17 18:47 Order name: XRAY Chest (1 view) 09/17 18:47 Order name: CT Head C Spine; Complete Time: 20:11 09/17 19:08 Order name: ABG Arterial Blood Gas [facility] 09/17 18:47 Order name: EKG; Complete Time: 18:48 09/17 18:47 Order name: Cardiac monitoring; Complete Time: 18:57 09/17 18:47 Order name: EKG - Nurse/Tech; Complete Time: 19:47 09/17 18:47 Order name: IV Saline Lock; Complete Time: 20:52 09/17 18:53 Order name: Pelvis XRAY; Complete Time: 20:10 09/17 18:47 Order name: O2 Per Protocol; Complete Time: 18:57 09/17 18:47 Order name: O2 Sat Monitoring; Complete Time: 18:57 Administered Medications: 09/17 20:10 Drug: Tylenol Liquid 320 mg Route: PO; ak1 20:53 Follow up: Response: No adverse reaction ak1 20:11 Drug: Tetanus-Diphtheria Toxoid Adult 0.5 ml {Speech Therapist: [employer]. Exp: ak1 05/20/2020. Lot #: [id number]. } Route: IM; Site: right deltoid; 20:53 Follow up: Response: No adverse reaction ak1 20:15 Drug: Lidocaine-Epinephrine -1%: (1:100,000) 5 ml {Note: at bedside for ERP use.} ak1 Volume: 20 ml; Route: Infiltration; Disposition: 09/17/18 20:48 Discharged to Home. Impression: Laceration without foreign body of scalp, Concussion without loss of consciousness. - Condition is Stable. - Discharge Instructions: Head Injury, Adult, Laceration Care, Adult. - Medication Reconciliation Form, Thank You Letter, Antibiotic Education, Prescription Opioid Use form. - Follow up: Private Physician; When: Upon discharge from the Emergency Department; Reason: If symptoms return, Recheck today's complaints, Continuance of care. - Problem is new. - Symptoms have improved. Signatures: Dispatcher [employer] [facility] Laly Mota RN RN aj1 Angela Whipple RN RN ak1 Karen Poe RN RN hb Starr, Gregory, MD MD gs Wadley, Terrence, MD MD tw4 Corrections: (The following items were deleted from the chart) 20:52 18:47 Labs collected and sent ordered. ak1 21:15 20:48 09/17/2018 20:48 Discharged to Home. Impression: Laceration without foreign body ak1 of scalp; Concussion without loss of consciousness. Condition is Stable. Forms are Medication Reconciliation Form, Thank You Letter, Antibiotic Education, Prescription Opioid Use. Follow up: Private Physician; When: Upon discharge from the Emergency Department; Reason: If symptoms return, Recheck today's complaints, Continuance of care. Problem is new. Symptoms have improved. tw4
[2018-09-17 21:36] VITALS: TEMP 97.7
[2018-09-17 21:39] VITALS: BP 115/57; O2SAT 97
--- NOTE | 2018-09-18 10:18 | EKG ---
Test Date: 2018-09-17 Test Time: 19:45:11 Specialist Wound Care: CLOVER MEASUREMENT RESULTS: Intervals: Rate: 80 MA: 164 QRSD: 70 QT: 392 QTc: 452 Leon: P: 88 MA: 164 QRS: 88 T: 98 INTERPRETIVE STATEMENTS: Normal sinus rhythm Non specific ST and T wave abnormality Abnormal ECG Compared to ECG 09/17/2018 19:44:23 Ventricular premature complex(es) no longer present Prolonged QT interval no longer present ST (T wave) deviation still present Electronically Signed On 09-18-18 10:18:50 CDT by Jelani Chand
== END 2018-09-17 21:15 | disposition home or self-care (01) ==
LOC: ER 18:39
DX: S01.01XA Laceration without foreign body of scalp, initial encounter (principal); S06.0X0A Concussion without loss of consciousness, initial encounter; W19.XXXA Unspecified fall, initial encounter; J44.9 Chronic obstructive pulmonary disease, unspecified; E78.00 Pure hypercholesterolemia, unspecified; I10 Essential (primary) hypertension; Z23 Encounter for immunization
CPT/HCPCS: 70450; 71045; 72125; 72170; 82805; 90471; 90714; 93005; 99284